=== PATIENT | female | born 1955 | race Caucasian/White ===

== ENCOUNTER 2020-10-21 00:03 | Emergency (ER) | payer MEDICAID, SELFPAY ==
--- NOTE | ~2020-10-21 | CT_ITS ---
EXAMINATION: CT ABDOMEN AND PELVIS WITHOUT CONTRAST CLINICAL INFORMATION: Rule out incarcerated hernia COMPARISON: 08/30/2018 TECHNIQUE: Multidetector volumetric imaging was performed from the superior aspect of the liver through the pubic symphysis. Sagittal and coronal reformatted images were obtained on the technologist's workstation. This CT examination was performed using dose optimization techniques as appropriate, variously including the following: *Automated exposure control *Adjustment of mA and/or kV according to patient size (this includes techniques or standardized protocols for targeted exams where dose is matched to indication/reason for exam; i.e. extremities or head) *Use of iterative reconstruction technique DLP: 936 mGy-cm FINDINGS: LUNG BASES: Bibasilar atelectasis is noted as well as some ground glass opacities in the right lower lobe. LIVER, GALLBLADDER, AND BILIARY TREE: The liver is normal in size, shape, and attenuation. Left hepatic lobe calcifications redemonstrated. No biliary ductal dilatation is present. Patient is status post cholecystectomy. PANCREAS: Unremarkable. SPLEEN: Unremarkable. ADRENAL GLANDS: Tiny right adrenal calcification redemonstrated. Left adrenal gland appears unremarkable. KIDNEYS AND URETERS: There is a proximal left ureteral calculus measuring up to 17 mm in length with moderate hydronephrosis. There are a few scattered right renal calculi measuring up to 5 mm without hydronephrosis or ureteral calculus. BLADDER: Partially distended. Tiny focus of gas noted anteriorly. GASTROINTESTINAL TRACT: No convincing evidence of bowel obstruction or significant wall thickening. No free fluid or free air is seen. ABDOMINAL WALL: There is a ventral hernia in the periumbilical region containing a loop of nondilated small bowel. There is some nearby subcutaneous stranding along the midline to right abdomen. LYMPH NODES: Normal. VASCULAR: Scattered atherosclerotic calcifications noted. PELVIC VISCERA: Unremarkable. OSSEOUS STRUCTURES: Degenerative changes are noted in the spine. CT/CT abdomen pelvis wo con IMPRESSION: 1. Proximal left ureteral calculus measuring 17 mm with moderate hydronephrosis. 2. Periumbilical ventral hernia containing a short segment of small bowel. No convincing evidence of bowel obstruction. 3. Right renal calculi without hydronephrosis. 4. Tiny focus of gas in the urinary bladder which could be due to recent catheterization or infection. 5. Regions of pulmonary groundglass opacity in the right lower lobe which could be due to atelectasis though an infectious/inflammatory etiology is also a possibility.
[2020-10-21 00:52] VITALS: BP 161/78; PULSE 75; RESP 16; TEMP 36.6; O2SAT 95; BMI 42.5
--- NOTE | 2020-10-21 00:59 | ECG_ITS ---
Test Reason : CHEST PAIN Blood Pressure : / mmHG Vent. Rate : 066 BPM Atrial Rate : 066 BPM P-R Int : 184 ms QRS Dur : 086 ms QT Int : 378 ms P-R-T Axes : 028 -04 032 degrees QTc Int : 396 ms Normal sinus rhythm Voltage criteria for left ventricular hypertrophy Nonspecific T wave abnormality Abnormal ECG When compared with ECG of 27-MAR-2018 17:55, Nonspecific T wave abnormality now evident in Inferior leads Referred By: Mignon Ames Electronically Signed By:JOHNNY COOPER MD
--- NOTE | 2020-10-21 01:00 | ED.ABDPAIN ---
HPI - Abdominal Pain General Chief Complaint: Abdominal Pain Stated Complaint: Hernia Time Seen by Provider: 10/21/20 00:53 Source: patient Mode of arrival: wheelchair Limitations: no limitations History of Present Illness HPI narrative: Patient comes emergency room complaining of a UTI that started this morning. Patient states she has been urinating frequently, states the urine smells bad. Denies flank pain, no fever or chills. Patient also complaining of diffuse abdominal pain, states that she has been having this intermittent diffuse abdominal pain for several months, states she has been operated for hernia over 7 times. Patient denies vomiting or diarrhea Related Data Previous Rx's Medication Instructions Recorded levofloxacin 500 mg PO DAILY #9 tab 10/21/20 tamsulosin [Flomax] 0.4 mg PO DAILY #10 cap 10/21/20 Allergies Allergy/AdvReac Type Severity Reaction Status Date / Time lactose [LACTOSE] Allergy Unknown UNKNOWN Verified 10/21/20 02:36 Sulfa (Sulfonamide Allergy Unknown ITCHY Verified 10/21/20 02:36 Antibiotics) [SULFA (SULFONAMIDE ANTIBIOTICS)] lactose Allergy Unknown Gastrointestinal Uncoded 10/21/20 02:36 Upset sulfa Allergy Unknown Itching Uncoded 10/21/20 02:36 Review of Systems Review of Systems Constitutional : No Weight loss, No Fever, No Chills, No Night Sweats, No Fatigue, No Malaise ENT/Mouth : No Hearing loss, No Ear Pain, No Nasal Congestion, No Sinus Pain, No Hoarseness, No sore throat, No Rhinorrhea, No Swallowing Difficulty Eyes: No Eye Pain, No Swelling, No Redness, No Foreign Body, No Discharge, No Vision Changes Cardiovascular : No Chest Pain, No SOB, No Dyspnea on Exertion, No Orthopnea, No Edema, No Palpitations Respiratory : No Cough, No Sputum, No Wheezing, No Smoke Exposure, No Dyspnea Gastrointestinal : No Nausea, No Vomiting, No Diarrhea, No Constipation, No abdominal Pain, No Hematochezia, No Melena Genitourinary : no irregular bleeding, No Dysuria, No Urinary Frequency, No Hematuria, No Urinary Incontinence, No Urgency, No Flank Pain, No Urinary Flow Changes, No Hesitancy Musculoskeletal : No joint pain, No Myalgias, No Joint Swelling Skin : No Skin Lesions, No rash Neuro : No Weakness, No Numbness, No Paresthesias, No Loss of Consciousness, No Dizziness, No Headache Psych : No Anxiety/Panic, No Depression, No SI/HI/AH/VH, No Social Issues, Heme/Lymph: No Bruising, No Bleeding,No Lymphadenopathy Endocrine : No Polyuria, No Polydipsia, No Temperature Intolerance Physical Exam Vital Signs: Vital Signs: Last Vital Signs Temp 97.8 F 10/21/20 00:52 Pulse 77 10/21/20 02:07 Resp 18 10/21/20 02:07 BP 143/62 H 10/21/20 02:07 Pulse Ox 95 10/21/20 02:07 Body Mass Index 42.5 Course Course Course Narrative: I discussed the labs and CT scan with the patient. Patient will follow-up with Urology. At this time, Levophed count within normal limits, pulmonary etiology is not suspected, patient does not have fever, chills, cough or any symptoms that would suggest pulmonary pathology. Patient will be given levofloxacin, which will cover both, urinary and pulmonary infections. Patient also requesting phone number for follow-up with surgery since she does not have 1, also requesting information for bariatric surgery MDM - Abdominal Pain Lab Data Result diagrams: 10/21/20 01:28 10/21/20 01:28 Labs: Lab Results 10/21/20 10/21/20 10/21/20 Range/Units 01:28 01:28 01:28 WBC 6.2 (4.8-10.8) X10*3/uL RBC 4.12 L (4.20-5.50) X10*6/uL Hgb 12.7 (12.0-16.0) g/dl Hct 37.9 (37-47) % MCV 92.0 (80-98) fL MCH 30.8 (27.0-33.0) pg MCHC 33.5 (31.0-35.0) g/dl RDW 12.6 (11.0-16.0) % Plt Count 246 (160-400) X10*3/uL MPV 10.2 (9.4-12.3) fL Immature Gran % (Auto) 0.6 H (0.0-0.4) % Neut % (Auto) 43.6 L (45-73) % Lymph % (Auto) 31.8 (20-40) % [place] % (Auto) 7.8 (2-11) % Eos % (Auto) 15.4 H (0-4) % Baso % (Auto) 0.8 (0-2) % Lymph # (Auto) 2.0 (1.2-4.9) X10*3/uL [place] # (Auto) 0.5 (0.1-1.2) X10*3/uL Eos # (Auto) 1.0 H (0.0-0.4) X10*3/uL Baso # (Auto) 0.1 (0.0-0.2) X10*3/uL Abs Immat Gran (auto) 0.04 H (0.00-0.03) X10*3/uL Absolute Neuts (auto) 2.7 (2.0-8.3) X10*3/uL Absolute Nucleated RBC 0.000 (0.0-0.012) X10*3/uL Nucleated RBC % (auto) 0.0 (0.0-0.2) /100WBC Sodium 142 (135-145) mmol/L Potassium 3.9 (3.3-5.1) mmol/L Chloride 103 (96-108) mmol/L Carbon Dioxide 29 (22-29) mmol/L Anion Gap 14 (12-20) BUN 16 (9-16) mg/dL Creatinine 0.86 (0.5-1.4) mg/dL Estim Creat Clear Calc 78.2 Estimated GFR > 60 Random Glucose 190 H (60-115) mg/dL Calcium 9.8 (8.4-10.2) mg/dL Total Bilirubin 0.4 (0.0-1.0) mg/dL Direct Bilirubin 0.2 (0.0-0.5) mg/dL AST 62 H (5-31) U/L ALT 92 H (0-31) U/L Alkaline Phosphatase 116 (39-117) U/L Total Protein 7.1 (6.5-8.0) g/dL Albumin 3.8 (3.5-5.0) g/dL Lipase 23 (8-78) U/L Urine Color YELLOW Urine Appearance HAZY Urine pH 6.0 (5.0-8.0) Ur Specific [place] 1.025 (1.005-1.025) Urine Protein NEG (NEG-TRACE) MG/DL Urine Glucose (UA) NEG (NEG) MG/DL Urine Ketones NEG (NEG) MG/DL Urine Blood TRACE (NEG) Urine Nitrite POS H (NEG) Ur Leukocyte Esterase 2+ H (NEG) Urine RBC 1-4 (0) /HPF Urine WBC TNTC H (0-4) /HPF Ur Squamous Epith Cells 1+ /LPF Urine Bacteria 4+ /LPF Imaging Data CT scan - abdomen: Radiologist's impression: FINDINGS: LUNG BASES: Bibasilar atelectasis is noted as well as some ground glass opacities in the right lower lobe. LIVER, GALLBLADDER, AND BILIARY TREE: The liver is normal in size, shape, and attenuation. Left hepatic lobe calcifications redemonstrated. No biliary ductal dilatation is present. Patient is status post cholecystectomy. PANCREAS: Unremarkable. SPLEEN: Unremarkable. ADRENAL GLANDS: Tiny right adrenal calcification redemonstrated. Left adrenal gland appears unremarkable. KIDNEYS AND URETERS: There is a proximal left ureteral calculus measuring up to 17 mm in length with moderate hydronephrosis. There are a few scattered right renal calculi measuring up to 5 mm without hydronephrosis or ureteral calculus. BLADDER: Partially distended. Tiny focus of gas noted anteriorly. GASTROINTESTINAL TRACT: No convincing evidence of bowel obstruction or significant wall thickening. No free fluid or free air is seen. ABDOMINAL WALL: There is a ventral hernia in the periumbilical region containing a loop of nondilated small bowel. There is some nearby subcutaneous stranding along the midline to right abdomen. LYMPH NODES: Normal. VASCULAR: Scattered atherosclerotic calcifications noted. PELVIC VISCERA: Unremarkable. OSSEOUS STRUCTURES: Degenerative changes are noted in the spine. CT/CT abdomen pelvis wo con IMPRESSION: 1. Proximal left ureteral calculus measuring 17 mm with moderate hydronephrosis. 2. Periumbilical ventral hernia containing a short segment of small bowel. No convincing evidence of bowel obstruction. 3. Right renal calculi without hydronephrosis. 4. Tiny focus of gas in the urinary bladder which could be due to recent catheterization or infection. 5. Regions of pulmonary groundglass opacity in the right lower lobe which could be due to atelectasis though an infectious/inflammatory etiology is also a possibility. ECG Data Attestation: I personally reviewed and interpreted this ECG as follows: (Sinus rhythm, heart rate 66, no ST segment depression or elevation, no T-wave inversion, QTC 396) Discharge Plan Discharge Clinical Impression: Abdominal pain, Ureterolithiasis Patient Disposition: Home, Self-Care Instructions: Abdominal Pain (ED), Ureteral Stones (ED) Additional Instructions: Please follow-up with your primary care physician tomorrow. If you have any worsening or new symptoms, please return to the emergency room or call 911 Prescriptions: New levofloxacin 500 mg tablet 500 mg PO DAILY Qty: 9 RF: 0 tamsulosin [Flomax] 0.4 mg capsule 0.4 mg PO DAILY Qty: 10 RF: 0 Referrals: Sarbjit Sanchez MD [Physician] - 2 days Luis Enrique Motley MD [Physician] - 2 days Apple Chen MD [Physician] - 2 days [facility] Past Medical History Medical History (Updated 10/21/20 @ 02:35 by Mignon Ames MD) Diabetes Hypertension Social History Social History Advance Directives: No Advance Directives Information Provided: No Patient : No
[2020-10-21 01:32] LABS: MANUAL DIFF FLAG NO
[2020-10-21 01:33] LABS: Basophils Absolute Auto 0.1 X10*3/uL (0.0-0.2); Basophils Percent Auto 0.8 % (0-2); Eosinophils Percent Auto 15.4 % (0-4); Hematocrit 37.9 % (37-47); Hemoglobin 12.7 g/dl (12.0-16.0); Imm Gran Abs Auto 0.04 X10*3/uL (0.00-0.03); Imm Gran Pct Auto 0.6 % (0.0-0.4); Lymphocytes Percent Auto 31.8 % (20-40); Mean Corpuscular HGB Conc 33.5 g/dl (31.0-35.0); Mean Corpuscular Hemoglobin 30.8 pg (27.0-33.0); Mean Platelet Volume 10.2 fL (9.4-12.3); Monocytes Absolute Auto 0.5 X10*3/uL (0.1-1.2); Monocytes Percent Auto 7.8 % (2-11); Neutrophils Absolute Auto 2.7 X10*3/uL (2.0-8.3); Neutrophils Percent Auto 43.6 % (45-73); Platelet Count 246 X10*3/uL (160-400); Red Blood Count 4.12 X10*6/uL (4.20-5.50); Red Cell Distribution Width 12.6 % (11.0-16.0); White Blood Count 6.2 X10*3/uL (4.8-10.8)
[2020-10-21 02:07] VITALS: BP 143/62; PULSE 77; RESP 18; O2SAT 95
[2020-10-21 02:09] LABS: Alanine Aminotransferase 92 U/L (0-31); Albumin Level 3.8 g/dL (3.5-5.0); Alkaline Phosphatase 116 U/L (39-117); Anion Gap 14 (12-20); Aspartate Amino Transferase 62 U/L (5-31); Bilirubin Direct 0.2 mg/dL (0.0-0.5); Bilirubin Total 0.4 mg/dL (0.0-1.0); Blood Urea Nitrogen 16 mg/dL (9-16); Calcium 9.8 mg/dL (8.4-10.2); Carbon Dioxide 29 mmol/L (22-29); Chloride 103 mmol/L (96-108); Creatinine Clr Calc Pharmacy 78.2; Estimated Glomerular Filt Rate > 60; Glucose Random 190 mg/dL (60-115); Lipase 23 U/L (8-78); Potassium 3.9 mmol/L (3.3-5.1); Sodium 142 mmol/L (135-145); Total Protein 7.1 g/dL (6.5-8.0)
[2020-10-21 02:13] LABS: Glucose Urine UA NEG (NEG); Leukocyte Esterase Urine 2+ (NEG); Nitrite Urine POS (NEG); Specific Gravity - Urine 1.025 (1.005-1.025); UACC Culture Trigger YES; Urine Blood TRACE (NEG); Urine Ketones NEG (NEG); Urine Protein NEG (NEG-TRACE)
[2020-10-21 02:15] LABS: Appearance Urine HAZY; Color Urine YELLOW
[2020-10-21 02:21] LABS: Bacteria Urine 4+ /LPF; Squamous Epithelial Cell Urine 1+ /LPF; WBC Urine TNTC /HPF (0-4)
[2020-10-21] MEDS: levoFLOXacin 500 MG TABLET PO (02:58)
== END 2020-10-21 03:08 | disposition home or self-care (01) ==
PROVIDERS: Emergency Provider Emergency Medicine
DX: R10.9 Unspecified abdominal pain (principal); N13.2 Hydronephrosis with renal and ureteral calculous obstruction; Z79.899 Other long term (current) drug therapy
CPT/HCPCS: 36415; 74176; 80048; 80076; 81001; 81003; 83690; 85025; 87086; 87088; 87186; 93005; 99285

== ENCOUNTER → 2020-10-25 11:14 | Outpatient (BNVA) | payer MEDICAID, SELFPAY | PROVIDERS: Visit Provider Urology | DX: N39.0 Urinary tract infection, site not specified (principal); N13.2 Hydronephrosis with renal and ureteral calculous obstruction | CPT/HCPCS: 51798; 99202 ==

== ENCOUNTER 2020-10-31 12:38 | Day surgery (SDC) | payer MEDICAID, SELFPAY ==
--- NOTE | ~2020-10-31 | FL_ITS ---
EXAMINATION: XR FLUOROSCOPY WITH IMAGES CLINICAL INFORMATION: Left kidney stone. COMPARISON: None. TECHNIQUE: Fluoroscopy performed by Dr. Daniel Schaffer. Fluoroscopy time: 0.8 minutes DAP: 7.27 mGycm2 Images: 2 FINDINGS: Image 1 reveals contrast opacifying the mid ureter with no intraluminal filling defect. There could be an abrupt narrowing between the proximal and mid ureter from a known ureteral calculi. The second image reveals a basket in the left left bladder region with a catheter extending into the distal ureter. FL/FL guidance in OR IMPRESSION: Fluoroscopy was provided to Dr. Daniel Schaffer.
[2020-10-31 12:49] VITALS: BP 150/85; PULSE 85; RESP 16; TEMP 36.3; O2SAT 95
[2020-10-31 12:55] VITALS: BMI 42.1
[2020-10-31] MEDS: Lactated Ringers 1,000 ML 100 ML IVCONT (13:00)
[2020-10-31 13:20] LABS: Glucose, Whole Blood 162 mg/dL (60-115)
--- NOTE | 2020-10-31 14:03 | HO.ANESPROP2 ---
HPI - Anesthesia Eval Consult details Narrative: 65 yo female patient for cysto, ureteroscopy, retro, laser, stent Left ureter PMFSH Active Problems Active Problems: All Active Problems (Updated 10/25/20 @ 12:21 by Sarbjit Sanchez MD) Nephrolithiasis (Acute) Recurrent UTI (Acute) Past Medical History Medical History (Updated 10/31/20 @ 15:03 by Sommer Schwartz) Diabetes Hypertension Increased BMI Family History Family history of problems with anesthesia: No Surgical History Surgical History (Updated 10/31/20 @ 15:11 by Sommer Schwartz) H/O colonoscopy H/O hernia repair H/O ovarian cystectomy History of Problems with Anesthesia: Yes (Woke up 'aggressively' after 1 surgery) Social History Social History Alcohol intake: never Patient Tobacco Use Status: Never used Tobacco Second Hand Smoke Exposure: No Are you DNR?: Yes Advance Directives: No Advance Directives Information Provided: Yes Advance Directives on File: No Meds Allergies Allergy/AdvReac Type Severity Reaction Status Date / Time lactose [LACTOSE] Allergy Unknown Gastrointestinal Verified 10/31/20 12:25 Upset Sulfa (Sulfonamide Allergy Unknown ITCHY Verified 10/25/20 11:43 Antibiotics) [SULFA (SULFONAMIDE ANTIBIOTICS)] Exam Exam Date and Time: October 31, 2020 1403 Height,Weight and Vital Signs: Height 5 ft 3 in Weight 107.955 kg Last Vital Signs Temp 97.3 F 10/31/20 12:49 Pulse 85 10/31/20 12:49 Resp 16 10/31/20 12:49 BP 150/85 H 10/31/20 12:49 Pulse Ox 95 10/31/20 12:49 Pertinent Lab Results Pertinent Lab Results: Laboratory Tests 10/31/20 13:16 POC Glucose 162 H Airway Mallampati Class: III TM Dist: >3cm Neck ROM: Full Loose/Missing/Broken Teeth: Yes (Some missing) Heart: RRR Lungs: CTAB Assessment and Plan Assessment Anesthesia Assessment: Anesthesia Plan Discussed and Chart Reviewed Final Anesthetic Review Family History of Problems with Anesthesia: No History of Problems with Anesthesia: Yes (Woke up 'aggressively' after 1 surgery) NPO: Yes ASA Class: III Final Preanesthetic Review: No Changes in Pt Med Stat, Meds/Allgs Chart Reviewed, Consent Obtained/Reviewed and Anes Risks/Benef Reviewed Patient Risk: Intermediate Procedure Risk: Low Assessment/Block/Sedation in SS: Assess/Block/Sedation-SS Anesthetic Plan Anesthetic Plan: GA Disposition: Standard PACU
--- NOTE | 2020-10-31 14:34 | PC.NURSE ---
patient moved to pacu. report given to amos soriano.
[2020-10-31] MEDS: levoFLOXacin 500 MG TABLET PO (14:51)
--- NOTE | 2020-10-31 15:50 | P.CONAN_ITS ---
[facility] Active Problems Active Problems: All Active Problems (Updated 10/31/20 @ 15:03 by Sommer sierra) H/O colonoscopy (Acute) H/O hernia repair (Acute) H/O ovarian cystectomy (Acute) Increased BMI (Acute) Nephrolithiasis (Acute) Recurrent UTI (Acute) Past Medical History Medical History (Updated 10/31/20 @ 15:03 by Sommer Schwartz) Diabetes Hypertension Increased BMI Family History Family history of problems with anesthesia: No Surgical History Surgical History (Updated 10/31/20 @ 15:11 by Sommer Schwartz) H/O colonoscopy H/O hernia repair H/O ovarian cystectomy History of Problems with Anesthesia: Yes (Woke up 'aggressively' after 1 surgery) Social History Social History Alcohol intake: never Patient Tobacco Use Status: Never used Tobacco Second Hand Smoke Exposure: No Are you DNR?: Yes Advance Directives: No Advance Directives Information Provided: Yes Advance Directives on File: No Meds Allergies Allergy/AdvReac Type Severity Reaction Status Date / Time lactose [LACTOSE] Allergy Unknown Gastrointestinal Verified 10/31/20 12:25 Upset Sulfa (Sulfonamide Allergy Unknown ITCHY Verified 10/25/20 11:43 Antibiotics) [SULFA (SULFONAMIDE ANTIBIOTICS)] Active Medications: Current Medications Generic Name Dose Route Start Last Admin Trade Name Freq PRN Reason Stop Dose Admin Acetaminophen 650 mg 10/31/20 14:07 Acetaminophen 325 Mg Tablet PO ONCE PRN Pain, Mild (Pain Scale 1-3) Fentanyl 25 mcg 10/31/20 14:07 Fentanyl Citrate/Pf 100 Mcg/2 Ml Vial IVPUSH Q5M PRN Pain, Moderate (Pain Scale 4-6 Lactated Ringer's 1,000 mls @ 100 mls/hr 10/31/20 14:15 10/31/20 13:00 Lr IVCONT 100 mls/hr .Q10H KEVIN Administration Ketorolac Tromethamine 15 mg 10/31/20 14:07 Ketorolac Tromethamine 15 Mg/Ml Vial IVPUSH ONCE PRN Pain, Moderate (Pain Scale 4-6 Ondansetron HCl 4 mg 10/31/20 14:07 Ondansetron Hcl 4 Mg/2 Ml Vial IVPUSH ONCE PRN Nausea and Vomiting Oxycodone HCl 5 mg 10/31/20 14:07 Oxycodone Hcl Immed Release 5 Mg Tablet PO ONCE PRN Pain, Moderate (Pain Scale 4-6 Oxycodone HCl 10 mg 10/31/20 14:07 Oxycodone Hcl Immed Release 5 Mg Tablet PO ONCE PRN Pain, Severe (Pain Scale 7-10) Exam Exam Date and Time: October 31, 2020 1550 Height,Weight and Vital Signs: Height 5 ft 3 in Weight 107.955 kg Last Vital Signs Temp 97.3 F 10/31/20 12:49 Pulse 85 10/31/20 12:49 Resp 16 10/31/20 12:49 BP 150/85 H 10/31/20 12:49 Pulse Ox 95 10/31/20 12:49 Pertinent Lab Results Pertinent Lab Results: Laboratory Tests 10/31/20 13:16 POC Glucose 162 H Airway TM Dist: >3cm Neck ROM: Full Assessment and Plan Final Anesthetic Review Family History of Problems with Anesthesia: No History of Problems with Anesthesia: Yes (Woke up 'aggressively' after 1 surgery)
--- NOTE | 2020-10-31 15:55 | P.HPSUR_ITS ---
Pre-Procedural Eval Section A Date of Service: 10/31/20 Section B Chief Complaint: calculus of kidney Relevant Family History (Specify if Yes): No Relevant Social History: None Present Medications: see Short Stay Collaborative assessment Medical History: No relevant PMH History of Previous Operations: No relevant previous surgery Allergies: Allergies Allergy/AdvReac Type Severity Reaction Status Date / Time lactose [LACTOSE] Allergy Unknown Gastrointestinal Verified 10/31/20 12:25 Upset Sulfa (Sulfonamide Allergy Unknown ITCHY Verified 10/25/20 11:43 Antibiotics) [SULFA (SULFONAMIDE ANTIBIOTICS)] Review of Systems Sugical H&P ROS: Negative: Constitution, Cardiovascular, Respiratory, Neurological, Psychiatric, Hem-Onc, Allergic/Immunologic, Gastrointestinal, Genitourinary, Musculoskeletal, Integumentary, Endocrine and Eyes/Ea rs/Nose/Throat Exam Surgical H&P Exam: Normal: HEENT, Normal: Heart, Normal: Lungs, Normal: Extremities, Normal: Abdomen, Normal: Skin and Normal: Neurological Plan Diagnosis/Plan: Unchanged (Cystoscopy, left retrograde, left ureteroscopy laser lithotripsy stent placement) I have reviewed the history and physical and performed a pertinent physical examination on my patient. No changes have occurred unless specified.
[2020-10-31 16:50] VITALS: BP 125/82; PULSE 93; RESP 13; TEMP 36.8; O2SAT 93
[2020-10-31 16:55] VITALS: BP 131/70; PULSE 108; RESP 15; O2SAT 92
[2020-10-31 17:00] VITALS: BP 130/70; PULSE 88; RESP 16; O2SAT 93
[2020-10-31 17:05] VITALS: BP 138/60; PULSE 78; RESP 16; TEMP 36.4; O2SAT 95
--- NOTE | 2020-10-31 17:14 | W.PM.OPN ---
Operative Note Operative Note Date of Service: 10/31/20 Narrative: PreOperative Diagnosis: Left proximal ureteric stone Post Operative Diagnosis: Large left proximal ureteric stone Procedure: - cystoscopy, retrograde - dilatation of ureteric orifice under fluoroscopy - ureteroscopy, laser lithotripsy - stent placement Surgeon: Dr Sarbjit Sanchez Anesthesia: General Indications for procedure: Large left proximal ureteric stone. Seen in ER. At that point with infection which resolved. Here for definitive procedure. Procedure: After informed consent was verified patient was brought to the operating placed in supine position. Anesthesia was administered per protocol. Patient was placed in modified dorsal lithotomy position and prepped and draped in a sterile fashion. Safety pause time-out and side of surgery confirmed. Antibiotics confirmed. Twenty-two [place]inamese cystoscope inserted per urethra. No abnormalities noted of bladder. Ureteric orifices in normal position. Left ureteric orifice cannulated and retrograde examination performed. Large filling defect in proximal portion of left ureter. Rigid ureteroscopy performed. Stone encountered. Using a laser the stone was broken into small pieces. The half the stone backed into the renal pelvis. The rigid scope was removed. A Glidewire placed. A flexible ureteral scope placed into the renal pelvis. The stone was encountered. It was broken further using the holmium laser. Fragments were too small to basket. Wire was placed back through the flexible ureteral scope. Six [place]amese by 22 cm double-J stent placed without difficulty. The bladder was emptied. Patient tolerated procedure well was extubated in operating room transferred in stable condition to recovery area. Pathology: stones Drains: stent
[2020-10-31 17:20] VITALS: BP 125/63; PULSE 89; RESP 16; TEMP 36.2; O2SAT 96
== END 2020-10-31 17:28 | disposition home or self-care (01) ==
PROVIDERS: Visit Provider Urology
PROC: (CPT 52356; principal; 2020-10-31 13:50)
DX: N20.1 Calculus of ureter (principal); I10 Essential (primary) hypertension; E11.9 Type 2 diabetes mellitus without complications; Z79.84 Long term (current) use of oral hypoglycemic drugs; Z79.899 Other long term (current) drug therapy; Z88.2 Allergy status to sulfonamides
CPT/HCPCS: 52356; 82947; C1769; C2617; J1100; J1885; J2250; J2370; J2405; J2765; J3010; Q9967

== ENCOUNTER 2020-11-01 01:50 | Inpatient (IN) | payer MEDICAID, SELFPAY ==
[2020-11-01] VITALS (10 sets, daily range): BP systolic 94–156; BP diastolic 45–71; PULSE 81–110; RESP 15–30; TEMP 36.5–36.8; O2SAT 88–98; BMI 37.5
--- NOTE | ~2020-11-01 | US_ITS ---
EXAMINATION: US PELVIS LIMITED (BLADDER) CLINICAL INFORMATION: Recent cystoscopy; lower abdominal pain. COMPARISON: Ultrasound abdomen limited dated 11/01/2020. CT abdomen and pelvis without contrast dated 10/21/2020. Renals only ultrasound dated 09/30/2018. KUB dated 09/23/2018. TECHNIQUE: Real-time imaging of the bladder. FINDINGS: BLADDER: Partially distended. Bilateral ureteral jets are demonstrated. Prevoid bladder volume is 23.6 mL. Postvoid bladder volume is 4.9 mL. US/US bladder IMPRESSION: Bladder not optimally distended. Otherwise unremarkable exam..
--- NOTE | ~2020-11-01 | US_ITS ---
EXAMINATION: US ABDOMEN LIMITED CLINICAL INFORMATION: Transaminitis. COMPARISON: CT abdomen and pelvis without contrast dated 10/21/2020. Renal only ultrasound dated 09/30/2018. KUB dated 09/23/2018. TECHNIQUE: Real-time imaging of the right upper quadrant abdominal viscera. Technically difficult study secondary to body habitus. FINDINGS: PANCREAS: Head and body are normal appearing. The tail of the pancreas is not well visualized due to bowel gas. LIVER: Normal. The liver is normal in size. The liver contour is normal. Parenchymal echogenicity is normal. No focal hepatic lesion. There is no intrahepatic biliary duct dilatation seen. GALLBLADDER: Surgically absent. COMMON BILE DUCT: Normal in caliber measuring 0.4 cm in diameter. RIGHT KIDNEY: Not well visualized. FREE FLUID: None. US/US abdomen limited IMPRESSION: The right kidney and tail of the pancreas are not well visualized.. Otherwise unremarkable exam.
--- NOTE | ~2020-11-01 | CT_ITS ---
EXAMINATION: CT HEAD WITHOUT CONTRAST CLINICAL INFORMATION: Altered mental status COMPARISON: None TECHNIQUE: Contiguous axial imaging was performed from the skull base to vertex without intravenous administration of contrast. This CT examination was performed using dose optimization techniques as appropriate, variously including the following: *Automated exposure control *Adjustment of mA and/or kV according to patient size (this includes techniques or standardized protocols for targeted exams where dose is matched to indication/reason for exam; i.e. extremities or head) *Use of iterative reconstruction technique DLP: 755 mGy-cm FINDINGS: There is no evidence of acute intracranial hemorrhage or territorial infarction. No abnormal mass effect or midline shift is seen. [place] to white matter differentiation is well preserved. No extra-axial fluid collections are identified. The ventricles are normal in size. Patchy subcortical and periventricular white matter low attenuation changes statistically related to chronic white matter small vessel ischemic disease. Cavernous carotid calcifications. The osseous structures and soft tissues are normal. The mastoid air cells and visualized portions of the paranasal sinuses are well aerated. CT/CT head/brain wo con IMPRESSION: No acute intracranial pathology.
--- NOTE | ~2020-11-01 | CT_ITS ---
EXAMINATION: CT ANGIOGRAM OF THE CHEST WITH AND WITHOUT CONTRAST (CT PULMONARY ANGIOGRAM FOR PE) CLINICAL INFORMATION: Reason for Exam Hypotensive, tachycardic, hypoxic COMPARISON: None TECHNIQUE: Prior to contrast administration, noncontrast localization images were obtained. Subsequently, multidetector volumetric imaging was performed from the thoracic inlet to below the diaphragms following the administration of 85 mL Omnipaque 350 intravenous contrast. No contrast reaction reported Sagittal, coronal, and MIP oblique sagittal reformatted images were obtained on the CT workstation, uploaded to PACS, and reviewed. This CT examination was performed using dose optimization techniques as appropriate, variously including the following: *Automated exposure control *Adjustment of mA and/or kV according to patient size (this includes techniques or standardized protocols for targeted exams where dose is matched to indication/reason for exam; i.e. extremities or head) *Use of iterative reconstruction technique Total exam dose-length product 560 mGy-cm FINDINGS: QUALITY OF STUDY/CONTRAST BOLUS: Satisfactory. PULMONARY ARTERIES: No central or segmental pulmonary emboli. THORACIC AORTA: No aneurysm or dissection. LUNG: Mild dependent subsegmental atelectasis. No evidence of infective consolidation. No pneumonitis. No significant bronchial thickening or bronchiectasis. PLEURA: No pleural effusion or pneumothorax. MEDIASTINUM: Mild cardiomegaly. No pericardial effusion. No aortic aneurysm or dissection. Main pulmonary artery dilated to 35 mm suggestive of pulmonary hypertension. No evidence of septal bowing or right heart strain. No reflux of contrast into the hepatic veins to suggest elevated right heart pressures. CHEST WALL/AXILLA: No axillary or internal mammary lymphadenopathy. OSSEOUS STRUCTURES: No acute or suspicious osseous abnormality. UPPER ABDOMEN: Unremarkable. CT/CT angio chest PE protocol IMPRESSION: * No pulmonary embolism. * Mild cardiomegaly with dilatation of the main pulmonary artery suggestive of pulmonary hypertension. * No acute pulmonary findings. * Bibasilar dependent subsegmental atelectasis. VTE: negative
[2020-11-01 01:58] LABS: Glucose, Whole Blood 280 mg/dL (60-115)
--- NOTE | 2020-11-01 01:59 | ECG_ITS ---
Test Reason : AMS Blood Pressure : / mmHG Vent. Rate : 109 BPM Atrial Rate : 109 BPM P-R Int : 166 ms QRS Dur : 082 ms QT Int : 334 ms P-R-T Axes : 021 -11 156 degrees QTc Int : 449 ms Sinus tachycardia Voltage criteria for left ventricular hypertrophy T wave abnormality, consider lateral ischemia Abnormal ECG When compared with ECG of 21-OCT-2020 01:32, Vent. rate has increased BY 43 BPM Inverted T waves have replaced nonspecific T wave abnormality in Lateral leads Referred By: Devi Richards Electronically Signed By:Fly Montanez
--- NOTE | 2020-11-01 02:04 | ED.AMS ---
HPI - Altered Mental Status General Chief Complaint: Altered Mental Status Stated Complaint: ? AMS Time Seen by Provider: 11/01/20 01:59 Source: patient, family (Daughter) and linux system administrator Mode of arrival: EMS History of Present Illness HPI narrative: This is a 65-year-old female who presents via EMS after her daughter woke up at 12:45 p.m. and helped her mother to the bathroom but then her mother became tremulous and white and ?passed out?. The daughter immediately called EMS. The daughter states that her mother returned from the hospital at approximately 6-7 p.m. last night after having undergone a cystoscopy for stone removal and states that her mother did not really have much of an appetite and that she was tremulous and when she checked her blood pressure she states that the systolic was approximately 62. She states that they were told that this could happen. She then says that she checked her mom's sugar and said that it was in the low 100s and gave her a corn cake. On arrival, patient although drowsy/lethargic states that she is dizzy. Otherwise history difficult to obtain from her on initial arrival. Related Data Previous Rx's Medication Instructions Recorded levofloxacin 500 mg tablet 500 mg PO DAILY #9 tab 10/21/20 tamsulosin 0.4 mg capsule (Flomax) 0.4 mg PO DAILY #10 cap 10/21/20 bethanechol chloride 50 mg tablet 50 mg PO BID 30 Days #60 tab 10/25/20 estradiol See Rx Instructions .ROUTE 3XW 30 10/25/20 Days #42.5 g phenazopyridine 100 mg tablet 100 mg PO TID PRN 4 Days #12 tab 10/31/20 (Pyridium) tamsulosin 0.4 mg capsule 0.4 mg PO BEDTIME 14 Days #14 cap 10/31/20 tramadol 50 mg tablet 50 mg PO Q6H PRN #14 tab 10/31/20 Allergies Allergy/AdvReac Type Severity Reaction Status Date / Time lactose [LACTOSE] Allergy Unknown Gastrointestinal Verified 10/31/20 12:25 Upset Sulfa (Sulfonamide Allergy Unknown ITCHY Verified 10/25/20 11:43 Antibiotics) [SULFA (SULFONAMIDE ANTIBIOTICS)] Review of Systems Review of Systems: Pertinent positives and negatives as stated in HPI 10 point review of systems is otherwise negative. PMFSH Past Medical History Source: nursing notes reviewed Medical History Diabetes Hypertension Increased BMI Surgical History H/O colonoscopy H/O hernia repair H/O ovarian cystectomy Social History Social History Alcohol intake: never Patient Tobacco Use Status: Never used Tobacco Second Hand Smoke Exposure: No Use of substances other than those prescribed or required for medical reasons: No Advance Directives: No Patient : No Physical Exam Vital Signs: Vital Signs: Last Vital Signs Temp 98.2 F 11/01/20 04:00 Pulse 98 11/01/20 04:00 Resp 15 11/01/20 04:00 BP 118/58 L 11/01/20 04:00 Pulse Ox 93 11/01/20 04:00 Body Mass Index 37.5 VITAL SIGNS: Reviewed. GENERAL: Obese, Well developed, well nourished HEAD: Normocephalic/atraumatic, EYES: PERRLA, EOMI OROPHARYNX: no oral lesions noted, posterior pharynx clear LUNGS: Normal breath sounds. SpO2<88> patient placed on supplemental oxygen via nasal cannula at 2 L with good response to 94% CARDIOVASCULAR: Tachycardia and rhythm without noted murmurs, no JVD or lower extremity edema. ABDOMEN: Obese, Soft, non-tender, non-distended with bowel sounds. MUSCULOSKELETAL: No tenderness, deformities, or effusions noted on gross inspection. EXTREMITIES: No cyanosis, clubbing or edema. SKIN: Inspection of the skin reveals no rashes, significant pallor NEUROLOGIC: Lethargic and oriented x 2. Strength and sensation to light touch were grossly intact x 4, no pronator drift, no facial asymmetry Course Course Course Narrative: 65-year-old female with history and clinical presentation consistent with altered mental status and initial expedient evaluation for neuro exam not impressive for deficits and initial EKG not indicative of any acute cardiac event and given patient's recent procedure suspected sepsis secondary to urine. However, patient was sent over for CT of the head while receiving IV fluid resuscitation for noted hypotension and tachycardia. Collateral information obtained from the daughter and on re-evaluation of the patient she has gradually begun to improve with fluids and return of color to her face, increased alertness, as well as improvement in blood pressure and heart rate. On review of all investigations she has a new leukocytosis, noted elevated D-dimer, as well as lactic acidosis and low magnesium level. Patient will undergo CT angio of chest to ensure no PE, although this is most consistent with sepsis. Re-evaluation and review of additional investigations demonstrates patient continuing to clinically improve and CTAs negative for PE. Case discussed with inpatient hospitalist who is agreeable for admission. MDM - Altered Mental Status Lab Data Result diagrams: 11/01/20 02:11 11/01/20 02:11 Labs: Lab Results 11/01/20 11/01/20 11/01/20 Range/Units 01:53 02:11 02:11 WBC 14.0 H (4.8-10.8) X10*3/uL RBC 4.36 (4.20-5.50) X10*6/uL Hgb 13.4 (12.0-16.0) g/dl Hct 40.9 (37-47) % MCV 93.8 (80-98) fL MCH 30.7 (27.0-33.0) pg MCHC 32.8 (31.0-35.0) g/dl RDW 13.2 (11.0-16.0) % Plt Count 209 (160-400) X10*3/uL MPV 10.6 (9.4-12.3) fL Immature Gran % (Auto) 1.6 H (0.0-0.4) % Neut % (Auto) 94.4 H (45-73) % Lymph % (Auto) 2.3 L (20-40) % Dukes % (Auto) 1.4 L (2-11) % Eos % (Auto) 0.1 (0-4) % Baso % (Auto) 0.2 (0-2) % Lymph # (Auto) 0.3 L (1.2-4.9) X10*3/uL [place]ukes # (Auto) 0.2 (0.1-1.2) X10*3/uL Eos # (Auto) 0.0 (0.0-0.4) X10*3/uL Baso # (Auto) 0.0 (0.0-0.2) X10*3/uL Abs Immat Gran (auto) 0.22 H (0.00-0.03) X10*3/uL Absolute Neuts (auto) 13.2 H (2.0-8.3) X10*3/uL Absolute Nucleated RBC 0.000 (0.0-0.012) X10*3/uL Nucleated RBC % (auto) 0.0 (0.0-0.2) /100WBC Smear Tech's Comments VERIFIED PT (9.9-13.0) SEC INR (0.9-1.1) D-Dimer NG/ML Sodium 139 (135-145) mmol/L Potassium 3.9 (3.3-5.1) mmol/L Chloride 104 (96-108) mmol/L Carbon Dioxide 22 (22-29) mmol/L Anion Gap 17 (12-20) BUN 20 H (9-16) mg/dL Creatinine 1.33 (0.5-1.4) mg/dL Estim Creat Clear Calc 54.2 Estimated GFR 40 POC Glucose 280 H (60-115) mg/dL Random Glucose 279 H D (60-115) mg/dL Lactic Acid (0.5-2.0) mmol/L Calcium 9.5 (8.4-10.2) mg/dL Magnesium 1.3 L* (1.6-2.6) mg/dL Total Bilirubin 1.8 H (0.0-1.0) mg/dL AST 165 H (5-31) U/L ALT 169 H (0-31) U/L Alkaline Phosphatase 107 (39-117) U/L Troponin I High Sens (<3.5-17.0) ng/L Total Protein 6.7 (6.5-8.0) g/dL Albumin 3.7 (3.5-5.0) g/dL Lipase 15 (8-78) U/L Urine Color Urine Appearance Urine pH (5.0-8.0) Ur Specific [place] (1.005-1.025) Urine Protein (NEG-TRACE) MG/DL Urine Glucose (UA) (NEG) MG/DL Urine Ketones (NEG) MG/DL Urine Blood (NEG) Urine Nitrite (NEG) Ur Leukocyte Esterase (NEG) Urine RBC (0) /HPF Urine WBC (0-4) /HPF Urine WBC Clumps Ur Squamous Epith Cells /LPF Urine Bacteria /LPF Acetone, Qual Negative (Negative) COVID-19 (REILLY) (Negative) COVID-19 Clin Com 11/01/20 11/01/20 11/01/20 Range/Units 02:11 02:11 02:32 WBC (4.8-10.8) X10*3/uL RBC (4.20-5.50) X10*6/uL Hgb (12.0-16.0) g/dl Hct (37-47) % MCV (80-98) fL MCH (27.0-33.0) pg MCHC (31.0-35.0) g/dl RDW (11.0-16.0) % Plt Count (160-400) X10*3/uL MPV (9.4-12.3) fL Immature Gran % (Auto) (0.0-0.4) % Neut % (Auto) (45-73) % Lymph % (Auto) (20-40) % Dukes % (Auto) (2-11) % Eos % (Auto) (0-4) % Baso % (Auto) (0-2) % Lymph # (Auto) (1.2-4.9) X10*3/uL [place]ukes # (Auto) (0.1-1.2) X10*3/uL Eos # (Auto) (0.0-0.4) X10*3/uL Baso # (Auto) (0.0-0.2) X10*3/uL Abs Immat Gran (auto) (0.00-0.03) X10*3/uL Absolute Neuts (auto) (2.0-8.3) X10*3/uL Absolute Nucleated RBC (0.0-0.012) X10*3/uL Nucleated RBC % (auto) (0.0-0.2) /100WBC Smear Tech's Comments PT 14.7 H (9.9-13.0) SEC INR 1.3 H (0.9-1.1) D-Dimer NG/ML Sodium (135-145) mmol/L Potassium (3.3-5.1) mmol/L Chloride (96-108) mmol/L Carbon Dioxide (22-29) mmol/L Anion Gap (12-20) BUN (9-16) mg/dL Creatinine (0.5-1.4) mg/dL Estim Creat Clear Calc Estimated GFR POC Glucose (60-115) mg/dL Random Glucose (60-115) mg/dL Lactic Acid 5.6 H* (0.5-2.0) mmol/L Calcium (8.4-10.2) mg/dL Magnesium (1.6-2.6) mg/dL Total Bilirubin (0.0-1.0) mg/dL AST (5-31) U/L ALT (0-31) U/L Alkaline Phosphatase (39-117) U/L Troponin I High Sens 3.9 (<3.5-17.0) ng/L Total Protein (6.5-8.0) g/dL Albumin (3.5-5.0) g/dL Lipase (8-78) U/L Urine Color Urine Appearance Urine pH (5.0-8.0) Ur Specific [place] (1.005-1.025) Urine Protein (NEG-TRACE) MG/DL Urine Glucose (UA) (NEG) MG/DL Urine Ketones (NEG) MG/DL Urine Blood (NEG) Urine Nitrite (NEG) Ur Leukocyte Esterase (NEG) Urine RBC (0) /HPF Urine WBC (0-4) /HPF Urine WBC Clumps Ur Squamous Epith Cells /LPF Urine Bacteria /LPF Acetone, Qual (Negative) COVID-19 (REILLY) (Negative) COVID-19 Clin Com 11/01/20 11/01/20 11/01/20 Range/Units 02:32 02:32 05:04 WBC (4.8-10.8) X10*3/uL RBC (4.20-5.50) X10*6/uL Hgb (12.0-16.0) g/dl Hct (37-47) % MCV (80-98) fL MCH (27.0-33.0) pg MCHC (31.0-35.0) g/dl RDW (11.0-16.0) % Plt Count (160-400) X10*3/uL MPV (9.4-12.3) fL Immature Gran % (Auto) (0.0-0.4) % Neut % (Auto) (45-73) % Lymph % (Auto) (20-40) % [place]ukes % (Auto) (2-11) % Eos % (Auto) (0-4) % Baso % (Auto) (0-2) % Lymph # (Auto) (1.2-4.9) X10*3/uL [place]ukes # (Auto) (0.1-1.2) X10*3/uL Eos # (Auto) (0.0-0.4) X10*3/uL Baso # (Auto) (0.0-0.2) X10*3/uL Abs Immat Gran (auto) (0.00-0.03) X10*3/uL Absolute Neuts (auto) (2.0-8.3) X10*3/uL Absolute Nucleated RBC (0.0-0.012) X10*3/uL Nucleated RBC % (auto) (0.0-0.2) /100WBC Smear Tech's Comments PT (9.9-13.0) SEC INR (0.9-1.1) D-Dimer [id number] NG/ML Sodium (135-145) mmol/L Potassium (3.3-5.1) mmol/L Chloride (96-108) mmol/L Carbon Dioxide (22-29) mmol/L Anion Gap (12-20) BUN (9-16) mg/dL Creatinine (0.5-1.4) mg/dL Estim Creat Clear Calc Estimated GFR POC Glucose (60-115) mg/dL Random Glucose (60-115) mg/dL Lactic Acid (0.5-2.0) mmol/L Calcium (8.4-10.2) mg/dL Magnesium (1.6-2.6) mg/dL Total Bilirubin (0.0-1.0) mg/dL AST (5-31) U/L ALT (0-31) U/L Alkaline Phosphatase (39-117) U/L Troponin I High Sens (<3.5-17.0) ng/L Total Protein (6.5-8.0) g/dL Albumin (3.5-5.0) g/dL Lipase (8-78) U/L Urine Color KRISTA Urine Appearance CLOUDY Urine pH 6.5 (5.0-8.0) Ur Specific [place] <= 1.005 (1.005-1.025) Urine Protein 1+ H (NEG-TRACE) MG/DL Urine Glucose (UA) NEG (NEG) MG/DL Urine Ketones NEG (NEG) MG/DL Urine Blood 3+ H (NEG) Urine Nitrite NEG (NEG) Ur Leukocyte Esterase TRACE H (NEG) Urine RBC TNTC H (0) /HPF Urine WBC 10-14 H (0-4) /HPF Urine WBC Clumps NOTED Ur Squamous Epith Cells 1+ /LPF Urine Bacteria 1+ /LPF Acetone, Qual (Negative) COVID-19 (REILLY) Negative (Negative) COVID-19 Clin Com See Note ECG Data ECG #1: Attestation: I personally reviewed and interpreted this ECG as follows: Prior ECG tracings: available for review (10/21/2020 no acute changes on comparison) Interpretation: Sinus tachycardia, HR-109, no STEMI, IL/QRS/QTC are within normal limits. Discharge Plan Discharge Clinical Impression: Syncope, Severe sepsis, Hypomagnesemia, UTI (urinary tract infection) Patient Disposition: Admitted As Inpatient
[2020-11-01] MEDS: 0.9 % Sodium Chloride 1,000 ML 999 ML IV (02:17)
[2020-11-01 02:18] LABS: Basophils Percent Auto 0.2 % (0-2); Eosinophils Percent Auto 0.1 % (0-4); Hematocrit 40.9 % (37-47); Hemoglobin 13.4 g/dl (12.0-16.0); Imm Gran Abs Auto 0.22 X10*3/uL (0.00-0.03); Imm Gran Pct Auto 1.6 % (0.0-0.4); Lymphocytes Absolute Auto 0.3 X10*3/uL (1.2-4.9); Lymphocytes Percent Auto 2.3 % (20-40); MANUAL DIFF FLAG SCAN; Mean Corpuscular HGB Conc 32.8 g/dl (31.0-35.0); Mean Corpuscular Hemoglobin 30.7 pg (27.0-33.0); Mean Corpuscular Volume 93.8 fL (80-98); Mean Platelet Volume 10.6 fL (9.4-12.3); Monocytes Absolute Auto 0.2 X10*3/uL (0.1-1.2); Monocytes Percent Auto 1.4 % (2-11); Neutrophils Absolute Auto 13.2 X10*3/uL (2.0-8.3); Neutrophils Percent Auto 94.4 % (45-73); Platelet Count 209 X10*3/uL (160-400); Red Blood Count 4.36 X10*6/uL (4.20-5.50); Red Cell Distribution Width 13.2 % (11.0-16.0); SCAN SMEAR FLAG 1
[2020-11-01 02:31] LABS: Acetone, serum QL Negative (Negative)
[2020-11-01 02:34] LABS: Lactic Acid 5.6 mmol/L (0.5-2.0)
[2020-11-01 02:39] LABS: SLIDE REVIEW VERIFIED
[2020-11-01 02:41] LABS: Troponin-I High Sensitivity 3.9 ng/L (<3.5-17.0)
[2020-11-01 02:44] LABS: INTERNATIONAL NORM RATIO 1.3 (0.9-1.1); Prothrombin Time 14.7 SEC (9.9-13.0)
[2020-11-01 02:46] LABS: Alanine Aminotransferase 169 U/L (0-31); Albumin Level 3.7 g/dL (3.5-5.0); Alkaline Phosphatase 107 U/L (39-117); Anion Gap 17 (12-20); Aspartate Amino Transferase 165 U/L (5-31); Bilirubin Total 1.8 mg/dL (0.0-1.0); Blood Urea Nitrogen 20 mg/dL (9-16); Calcium 9.5 mg/dL (8.4-10.2); Carbon Dioxide 22 mmol/L (22-29); Chloride 104 mmol/L (96-108); Creatinine Clr Calc Pharmacy 54.2; Estimated Glomerular Filt Rate 40; Glucose Random 279 mg/dL (60-115); Lipase 15 U/L (8-78); Magnesium 1.3 mg/dL (1.6-2.6); Potassium 3.9 mmol/L (3.3-5.1); Sodium 139 mmol/L (135-145); Total Protein 6.7 g/dL (6.5-8.0)
[2020-11-01 02:52] LABS: COVID-19 Test Negative (Negative); IDNOW Serial# 9DD0AD1C
[2020-11-01 03:13] LABS: D Dimer 11980 NG/ML
[2020-11-01] MEDS: cefTRIAXone sodium 1 GM in 0.9 % Sodium Chloride 50 ML IV (03:18)
[2020-11-01 04:18] LABS: Reflex Lactate? Lactic Acid Added
[2020-11-01] MEDS: iohexoL 350 MG/ML 100 ML INFUS..BTL 85 ML IV (04:32)
[2020-11-01] MEDS: Magnesium Sulfate/D5W 1 GM/100 ML PIGGYBACK IV (04:42)
[2020-11-01 05:10] LABS: Glucose Urine UA NEG (NEG); Leukocyte Esterase Urine TRACE (NEG); Nitrite Urine NEG (NEG); PH 6.5 (5.0-8.0); Specific Gravity - Urine <= 1.005 (1.005-1.025); UACC Culture Trigger YES; Urine Blood 3+ (NEG); Urine Ketones NEG (NEG); Urine Protein 1+ MG/DL (NEG-TRACE)
[2020-11-01 05:12] LABS: Appearance Urine CLOUDY; Color Urine AMBER
[2020-11-01 05:17] LABS: Bacteria Urine 1+ /LPF; RBC Urine TNTC /HPF (0); Squamous Epithelial Cell Urine 1+ /LPF; WBC Clumps Urine NOTED
--- NOTE | 2020-11-01 05:55 | P.HPHOSP_ITS ---
History of Present Illness Date of Service: 11/01/20 Chief Complaint: Syncope 65-year-old female with a past medical history of hypertension, diabetes, of hernia status post multiple abdominal surgeries,, recent diagnosis of renal calculi-Cystoscopy, left retrograde, left ureteroscopy laser lithotripsy stent placement on 10/31/[address] huerta; subsequently went home at around 6:00 p.m.; presented to the hospital with a chief complaint of syncope. Patient is Portuguese-speaking; discussed with the patient patient's daughter at bedside with a winder contort operator. Reportedly after the patient went home she felt tremulous and shaky and noted to have low blood pressure; subsequently patient turned pale became diaphoretic and lost consciousness for few minutes; denies any fall, head strike; patient denies any numbness tingling headaches or blurry visions. At the time of my interview patient reports that she has back at her baseline; reports mild dizziness. Mental status is at her baseline as per the patient's daughter. Patient denies any chest pain palpitations. Denies any fever chills cough. Patient reports lower abdominal discomfort in the perivaginal area mostly- attributes to the cystoscopy procedure. Complains of burning urination. Denies any nausea vomiting diarrhea. Review of all other systems is negative except mentioned above ER course: Per ER team patient noted to have soft blood pressures; elevated lactate; urinalysis was abnormal possible UTI-given ceftriaxone. CT chest showed no e vidence of pulmonary embolism. EKG was nonischemic. Troponin was negative. Admitted to the hospital for further management. [facility] Medical History (Updated 11/15/20 @ 09:45 by Luis Alfredo Trivedi MD) Benign essential hypertension Diabetes GERD without esophagitis Hypertension Hypothyroidism Increased BMI Lumbar degenerative disc disease Morbid obesity with BMI of 40.0-44.9, adult Neuropathy Numbness of foot Swelling of lower extremity Type 2 diabetes mellitus with diabetic neuropathy Surgical History (Updated 11/15/20 @ 09:37 by Luis Alfredo Trivedi MD) H/O colonoscopy H/O hernia repair (~2016) H/O ovarian cystectomy History of appendectomy History of cholecystectomy History of oophorectomy History of surgery History of tubal ligation Social History Household Members: Family Housing: Apartment Do you presently have visiting nurse or other home services: No Alcohol intake: never Patient Tobacco Use Status: Never used Tobacco Second Hand Smoke Exposure: No service: No Current occupational status: disabled Meds Allergies Allergy/AdvReac Type Severity Reaction Status Date / Time lactose [LACTOSE] Allergy Unknown Gastrointestinal Verified 11/15/20 09:07 Upset Sulfa (Sulfonamide Allergy Unknown ITCHY Verified 11/15/20 09:07 Antibiotics) [SULFA (SULFONAMIDE ANTIBIOTICS)] Active Medications: Current Medications Generic Name Dose Route Start Last Admin Trade Name Freq PRN Reason Stop Dose Admin Acetaminophen 650 mg 11/01/20 05:48 Acetaminophen 325 Mg Tablet PO Q6H PRN Pain, Mild (Pain Scale 1-3) Sodium Chloride 1,000 mls @ 75 mls/hr 11/01/20 06:00 Ns IVCONT .[id number] [facility] Ceftriaxone Sodium 1 gm/ 50 mls @ 100 mls/hr 11/01/20 06:00 Sodium Chloride IV Q24H [facility] Insulin Human Lispro 0 unit 11/01/20 07:30 Insulin Lispro 100 Unit/Ml 3 Ml Vial SUBCUT QIDACHS [facility] Protocol Melatonin 6 mg 11/01/20 05:48 Melatonin 3 Mg Tablet PO BEDTIME PRN Insomnia Oxycodone HCl 5 mg 11/01/20 05:48 Oxycodone Hcl Immed Release 5 Mg Tablet PO Q6H PRN Pain, Severe (Pain Scale 7-10) Senna 17.2 mg 11/01/20 05:48 Sennosides 8.6 Mg Tablet PO BEDTIME PRN Constipation Sodium Chloride 3 ml 11/01/20 08:00 0.9 % Sodium Chloride Flush 3 Ml Syringe IVFLUSH QSHIFT [facility] Home Medications Medication Instructions Recorded Confirmed Last Taken Type aspirin 81 mg tablet 81 mg PO DAILY 11/01/20 11/15/20 10/30/20 History Physical Exam Vital Signs and Narrative: Vital Signs: Last Vital Signs Temp 98.2 F 11/01/20 04:00 Pulse 98 11/01/20 04:00 Resp 15 11/01/20 04:00 BP 118/58 L 11/01/20 04:00 Pulse Ox 93 11/01/20 04:00 Body Mass Index 37.5 Gen: Appears be in no acute distress HEENT: NCAT, Moist mucosa. Pulmonary: Vesicular breath sounds, fair air entry CVS: Normal S1-S2 Abdomen: BS+, Soft, tender in the lower abdomen; no guarding no rigidity Extremities: Warm well perfused Neuro: Alert and awake. Grossly nonfocal Results Labs CBC and Chem 7: 11/03/20 06:12 11/03/20 06:12 Labs: Laboratory Results - last 24 hr 11/01/20 11/01/20 11/01/20 01:53 02:11 02:11 MCV 93.8 MCH 30.7 MCHC 32.8 RDW 13.2 Plt Count 209 MPV 10.6 Immature Gran % (Auto) 1.6 H Neut % (Auto) 94.4 H Lymph % (Auto) 2.3 L [place] % (Auto) 1.4 L Eos % (Auto) 0.1 Baso % (Auto) 0.2 Lymph # (Auto) 0.3 L [place] # (Auto) 0.2 Eos # (Auto) 0.0 Baso # (Auto) 0.0 Abs Immat Gran (auto) 0.22 H Absolute Neuts (auto) 13.2 H Absolute Nucleated RBC 0.000 Nucleated RBC % (auto) 0.0 Smear Tech's Comments VERIFIED PT INR D-Dimer Anion Gap 17 Estim Creat Clear Calc 54.2 Estimated GFR 40 POC Glucose 280 H Random Glucose 279 H D Lactic Acid Calcium 9.5 Magnesium 1.3 L* Total Bilirubin 1.8 H AST 165 H ALT 169 H Alkaline Phosphatase 107 Troponin I High Sens Total Protein 6.7 Albumin 3.7 Lipase 15 Urine Color Urine Appearance Urine pH Ur Specific [place] Urine Protein Urine Glucose (UA) Urine Ketones Urine Blood Urine Nitrite Ur Leukocyte Esterase Urine RBC Urine WBC Urine WBC Clumps Ur Squamous Epith Cells Urine Bacteria Acetone, Qual Negative COVID-19 (REILLY) COVID-19 Clin Com 11/01/20 11/01/20 11/01/20 02:11 02:11 02:32 MCV MCH MCHC RDW Plt Count MPV Immature Gran % (Auto) Neut % (Auto) Lymph % (Auto) [place] % (Auto) Eos % (Auto) Baso % (Auto) Lymph # (Auto) [place] # (Auto) Eos # (Auto) Baso # (Auto) Abs Immat Gran (auto) Absolute Neuts (auto) Absolute Nucleated RBC Nucleated RBC % (auto) Smear Tech's Comments PT 14.7 H INR 1.3 H D-Dimer Anion Gap Estim Creat Clear Calc Estimated GFR POC Glucose Random Glucose Lactic Acid 5.6 H* Calcium Magnesium Total Bilirubin AST ALT Alkaline Phosphatase Troponin I High Sens 3.9 Total Protein Albumin Lipase Urine Color Urine Appearance Urine pH Ur Specific [place] Urine Protein Urine Glucose (UA) Urine Ketones Urine Blood Urine Nitrite Ur Leukocyte Esterase Urine RBC Urine WBC Urine WBC Clumps Ur Squamous Epith Cells Urine Bacteria Acetone, Qual COVID-19 (REILLY) COVID-19 Clin Com 11/01/20 11/01/20 11/01/20 02:32 02:32 05:04 MCV MCH MCHC RDW Plt Count MPV Immature Gran % (Auto) Neut % (Auto) Lymph % (Auto) [place] % (Auto) Eos % (Auto) Baso % (Auto) Lymph # (Auto) [place] # (Auto) Eos # (Auto) Baso # (Auto) Abs Immat Gran (auto) Absolute Neuts (auto) Absolute Nucleated RBC Nucleated RBC % (auto) Smear Tech's Comments PT INR D-Dimer [id number] Anion Gap Estim Creat Clear Calc Estimated GFR POC Glucose Random Glucose Lactic Acid Calcium Magnesium Total Bilirubin AST ALT Alkaline Phosphatase Troponin I High Sens Total Protein Albumin Lipase Urine Color KRISTA Urine Appearance CLOUDY Urine pH 6.5 Ur Specific [place] <= 1.005 Urine Protein 1+ H Urine Glucose (UA) NEG Urine Ketones NEG Urine Blood 3+ H Urine Nitrite NEG Ur Leukocyte Esterase TRACE H Urine RBC TNTC H Urine WBC 10-14 H Urine WBC Clumps NOTED Ur Squamous Epith Cells 1+ Urine Bacteria 1+ Acetone, Qual COVID-19 (REILLY) Negative COVID-19 Clin Com See Note Imaging Radiologist's Impressions: Impressions Head CT 11/01/20 02:12 IMPRESSION: No acute intracranial pathology. Chest CTA 11/01/20 03:55 IMPRESSION: * No pulmonary embolism. * Mild cardiomegaly with dilatation of the main pulmonary artery suggestive of pulmonary hypertension. * No acute pulmonary findings. * Bibasilar dependent subsegmental atelectasis. VTE: negative Assessment and Plan (1) Syncope: Status: Acute 65-year-old female with a past medical history of hypertension, diabetes, obesity, history of recurrent UTI, recent diagnosis of renal calculi status post cystoscopy/lithotripsy/stent placement on 10/31/[address] huerta presented to the hospital with a chief complaint of syncope. Syncope: Patient had soft blood pressure on presentation. As reported by the patient's family patient had low blood pressure at home. Likely volume depletion/vasovagal etiology. Exam nonfocal CT head negative Fall precautions PT/OT eventually. Monitor on telemetry Cycle cardiac enzymes Hypomagnesemia: Repleted Lactic acidosis: Patient on IV fluids Transaminitis: Likely in the setting of sepsis/hypotension. Monitor liver enzymes. Acute hepatitis panel. Will obtain right upper quadrant ultrasound. UTI: Continue ceftriaxone. Follow up cultures. Will also obtain renal ultrasound given recent procedure. Hypertension: Will hold home antihypertensives as patient will pressure on the lower side on presentation. Diabetes: Insulin sliding scale. Hold home metformin. DVT prophylaxis: SCD boots Code status: Full code Quality Stroke Does the patient have a stroke diagnosis?: No VTE Prior VTE?: No VTE Risk Level:: Medical - moderate - high VTE Device Contraindication: N/A - Device Ordered VTE Drug Contraindication: Treatment Not Indicated
[2020-11-01 05:59] LABS: ~Lactic Acid-LAB USE ONLY 3.1 mmol/L (0.5-2.0)
[2020-11-01] MEDS: 0.9 % Sodium Chloride 1,000 ML 75 ML IVCONT (06:51)
[2020-11-01 07:03] LABS: Magnesium 1.5 mg/dL (1.6-2.6)
[2020-11-01 07:22] LABS: Glucose, Whole Blood 215 mg/dL (60-115)
[2020-11-01 07:23] LABS: Troponin-I High Sensitivity < 3.5 ng/L (<3.5-17.0)
[2020-11-01 07:26] LABS: Alanine Aminotransferase 141 U/L (0-31); Albumin Level 3.2 g/dL (3.5-5.0); Alkaline Phosphatase 90 U/L (39-117); Anion Gap 15 (12-20); Aspartate Amino Transferase 114 U/L (5-31); Bilirubin Total 1.6 mg/dL (0.0-1.0); Blood Urea Nitrogen 18 mg/dL (9-16); Calcium 8.2 mg/dL (8.4-10.2); Carbon Dioxide 20 mmol/L (22-29); Chloride 109 mmol/L (96-108); Creatinine Clr Calc Pharmacy 70.8; Estimated Glomerular Filt Rate 55; Glucose Random 212 mg/dL (60-115); Potassium 4.1 mmol/L (3.3-5.1); Sodium 140 mmol/L (135-145); Total Protein 5.9 g/dL (6.5-8.0)
[2020-11-01 07:38] LABS: Reflex Lactate? 2 Y
[2020-11-01] MEDS: Insulin Lispro 100 UNIT/ML 3 ML VIAL SUBCUT ×4 (07:48→20:41)
[2020-11-01 08:39] LABS: HBc Num1 0.14 S/CO (0.00-0.79); HBsAGNum1 0.19 S/CO (0.00-0.99); Hepatitis B Core Antibody Nonreactive (Nonreactive); Hepatitis B Surface Antigen Negative (Negative); ~Hepatitis C Antibody Nonreactive (Nonreactive)
[2020-11-01 08:41] LABS: HBS Num1 0.16 mIU/mL (0-7.99); ~Hepatitis B Surface Antibody NONREACTIVE (Nonreactive)
--- NOTE | 2020-11-01 09:26 | MHC.CM.PN ---
pt lives alone in apt. she reports that she is independent in her care. she has family including a daughter that lives nearby that can help patient if she needs it. this will include a ride home at dc. pt denies the need for vna at dc. dc plan is home no svcs. cm to cont. to follow.
--- NOTE | 2020-11-01 09:40 | PC.NURSE ---
Patient in ED 11/01/20 with c/o inability to void. Postop call done with assistance of [facility] [employer] Manager. Dr Flowers's office contacted and message left for Dr Flowers of patient's disposition
[2020-11-01] MEDS: Levothyroxine Sodium 175 MCG TABLET PO (11:13)
[2020-11-01] MEDS: 0.9 % Sodium Chloride 1,000 ML 150 ML IVCONT (11:13)
[2020-11-01 11:16] LABS: Glucose, Whole Blood 183 mg/dL (60-115)
[2020-11-01] MEDS: Acetaminophen 325 MG TABLET 650 MG PO ×2 (11:28→20:49)
[2020-11-01 16:21] LABS: Glucose, Whole Blood 231 mg/dL (60-115)
--- NOTE | 2020-11-01 16:22 | PM.UROCN ---
History of Present Illness Consult details Consult date: 11/01/20 Narrative: Gisela is a pleasant 65-year-old Portuguese-speaking female. Yesterday underwent ureteroscopy with laser lithotripsy often imbedded stone in her left proximal ureter. Had previously presented with infection from the stone. Came back to the hospital that evening with dizziness and questions of losing consciousness. Prior episode of stroke. Has been admitted for observation. Last UA that was performed showed no evidence of infection. Current microbiology is pending. WBC up to 14 likely reactive. Has been given antibiotics At this point in time would just keep her hydrated Review of Systems Constitutional: Constitutional: Denies chills and Denies fever(s) Cardiovascular: Cardiovascular: Reports no additional cardiovascular complaints and Denies syncope Respiratory: Respiratory: Denies cough Gastrointestinal: Gastrointestinal: Denies abdominal pain and Denies heartburn Genitourinary: Genitourinary: Reports as per HPI and Denies change in libido Neurologic: Denies syncope Psychiatric: Psychiatric: Denies change in libido Endocrine: Endocrine: Denies change in libido [facility] Past Medical History Medical History Diabetes Hypertension Increased BMI Surgical History Surgical History H/O colonoscopy H/O hernia repair H/O ovarian cystectomy Social History Social History Household Members: Family Housing: Apartment Do you presently have visiting nurse or other home services: No Alcohol intake: never Patient Tobacco Use Status: Never used Tobacco Second Hand Smoke Exposure: No Use of substances other than those prescribed or required for medical reasons: No Have you been hit, kicked, punched, or otherwise hurt by someone within the past year? If so, by whom?: No Do you feel safe in your current relationship?: No Current Relationship Is there a partner from a previous relationship who is making you feel unsafe now?: No Are you made to feel afraid or neglected: No Orthodox Healthcare Practices: Pentacostal Advance Directives: No Do you have thoughts of harming others: None Do you have a plan to hurt others: No Plan Recently lost weight without trying: Yes How much weight loss: 2-13 pounds Eating poorly because of decreased appetite: Yes Nutrition screen score: 4 Nutrition Risks: No Nutritional Risk Patient : No service: No Current occupational status: disabled Meds Allergies Allergy/AdvReac Type Severity Reaction Status Date / Time lactose [LACTOSE] Allergy Unknown Gastrointestinal Verified 10/31/20 12:25 Upset Sulfa (Sulfonamide Allergy Unknown ITCHY Verified 10/25/20 11:43 Antibiotics) [SULFA (SULFONAMIDE ANTIBIOTICS)] Active Medications: Current Medications Generic Name Dose Route Start Last Admin Trade Name Freq PRN Reason Stop Dose Admin Acetaminophen 650 mg 11/01/20 05:48 11/01/20 11:28 Acetaminophen 325 Mg Tablet PO 650 mg Q6H PRN Administration Pain, Mild (Pain Scale 1-3) Aspirin 81 mg 11/02/20 09:00 Aspirin 81 Mg Tab.Chew PO DAILY KEVIN Famotidine 40 mg 11/02/20 09:00 Famotidine 20 Mg Tablet PO DAILY KEVIN Sodium Chloride 1,000 mls @ 150 mls/hr 11/01/20 06:00 11/01/20 11:13 Ns IVCONT 150 mls/hr .Q6H40M KEVIN Administration Ceftriaxone Sodium 1 gm/ 50 mls @ 100 mls/hr 11/02/20 03:00 Sodium Chloride IV Q24H [facility] Insulin Human Lispro 0 - 10 unit 11/01/20 07:30 11/01/20 11:27 Insulin Lispro 100 Unit/Ml 3 Ml Vial SUBCUT 2 unit QIDACHS KEVIN Administration Protocol Levothyroxine Sodium 175 mcg 11/01/20 10:00 11/01/20 11:13 Levothyroxine Sodium 175 Mcg Tablet PO 175 mcg DAILY KEVIN Administration Melatonin 6 mg 11/01/20 05:48 Melatonin 3 Mg Tablet PO BEDTIME PRN Insomnia Oxycodone HCl 5 mg 11/01/20 05:48 Oxycodone Hcl Immed Release 5 Mg Tablet PO Q6H PRN Pain, Severe (Pain Scale 7-10) Senna 17.2 mg 11/01/20 05:48 Sennosides 8.6 Mg Tablet PO BEDTIME PRN Constipation Sodium Chloride 3 ml 11/01/20 08:00 11/01/20 07:20 0.9 % Sodium Chloride Flush 3 Ml Syringe IVFLUSH Not Given QSHIFT KEVIN Tamsulosin HCl 0.4 mg 11/01/20 21:00 Tamsulosin Hcl 0.4 Mg Capsule PO BEDTIME [facility] Home Medications Medication Instructions Recorded Confirmed Last Taken Type aspirin 81 mg tablet 81 mg PO DAILY 11/01/20 11/01/20 10/30/20 History famotidine 40 mg tablet 40 mg PO DAILY 11/01/20 11/01/20 10/30/20 History glipizide 5 mg tablet 5 mg PO DAILY 11/01/20 11/01/20 10/30/20 History levothyroxine 175 mcg tablet 175 mcg PO DAILY 11/01/20 11/01/20 10/30/20 History (Synthroid) losartan 100 mg tablet 100 mg PO DAILY 11/01/20 11/01/20 10/30/20 History metformin 850 mg tablet 850 mg PO BID 11/01/20 11/01/20 10/30/20 History Physical Exam Vital Signs: Vital Signs: Last Vital Signs Temp 97.7 F 11/01/20 15:22 Pulse 89 11/01/20 15:22 Resp 18 11/01/20 15:22 BP 142/66 H 11/01/20 15:22 Pulse Ox 94 11/01/20 15:22 Body Mass Index 37.5 Const: General: cooperative, healthy appearing, comfortable and no acute distress Orientation/consciousness: patient oriented x3 HENMT: Face and sinus: Yes normal facial exam Mouth: moist mucous membranes Neck: Neck: Yes normal visual inspection, Yes full ROM and Yes trachea midline Chest: Chest palpation & inspection: normal inspection of the chest Resp: Effort & Inspection: normal respiratory effort, able to speak in complete sentences and no respiratory distress GI: Inspection: Yes normal to inspection Back/Spine/Pelvis: Cervical Spine: normal cervical lordosis Thoracic/Lumbar Spine: thoracic and lumbar spine normal to inspection Skin: General skin exam: no rashes or lesions noted Neuro: General: patient oriented x3, gait normal, tone normal and moves all extremities Extrem: General: Yes normal to inspection and Yes capillary refill normal Results Labs Result diagrams: 11/01/20 02:11 11/01/20 06:21 Labs: Abnormal lab results 11/01/20 11/01/20 11/01/20 Range/Units 01:53 02:11 02:11 WBC 14.0 H (4.8-10.8) X10*3/uL Immature Gran % (Auto) 1.6 H (0.0-0.4) % Neut % (Auto) 94.4 H (45-73) % Lymph % (Auto) 2.3 L (20-40) % [place] % (Auto) 1.4 L (2-11) % Lymph # (Auto) 0.3 L (1.2-4.9) X10*3/uL Abs Immat Gran (auto) 0.22 H (0.00-0.03) X10*3/uL Absolute Neuts (auto) 13.2 H (2.0-8.3) X10*3/uL PT (9.9-13.0) SEC INR (0.9-1.1) Chloride (96-108) mmol/L Carbon Dioxide (22-29) mmol/L BUN 20 H (9-16) mg/dL POC Glucose 280 H (60-115) mg/dL Random Glucose 279 H D (60-115) mg/dL Lactic Acid (0.5-2.0) mmol/L Lactic Acid Fup @ 2Hr (0.5-2.0) mmol/L Lactic Acid Fup @ 4Hr (0.5-2.0) mmol/L Calcium (8.4-10.2) mg/dL Magnesium 1.3 L* (1.6-2.6) mg/dL Total Bilirubin 1.8 H (0.0-1.0) mg/dL AST 165 H (5-31) U/L ALT 169 H (0-31) U/L Total Protein (6.5-8.0) g/dL Albumin (3.5-5.0) g/dL Urine Protein (NEG-TRACE) MG/DL Urine Blood (NEG) Ur Leukocyte Esterase (NEG) Urine RBC (0) /HPF Urine WBC (0-4) /HPF 11/01/20 11/01/20 11/01/20 Range/Units 02:11 02:32 05:03 WBC (4.8-10.8) X10*3/uL Immature Gran % (Auto) (0.0-0.4) % Neut % (Auto) (45-73) % Lymph % (Auto) (20-40) % [place] % (Auto) (2-11) % Lymph # (Auto) (1.2-4.9) X10*3/uL Abs Immat Gran (auto) (0.00-0.03) X10*3/uL Absolute Neuts (auto) (2.0-8.3) X10*3/uL PT 14.7 H (9.9-13.0) SEC INR 1.3 H (0.9-1.1) Chloride (96-108) mmol/L Carbon Dioxide (22-29) mmol/L BUN (9-16) mg/dL POC Glucose (60-115) mg/dL Random Glucose (60-115) mg/dL Lactic Acid 5.6 H* (0.5-2.0) mmol/L Lactic Acid Fup @ 2Hr 3.1 H* (0.5-2.0) mmol/L Lactic Acid Fup @ 4Hr (0.5-2.0) mmol/L Calcium (8.4-10.2) mg/dL Magnesium (1.6-2.6) mg/dL Total Bilirubin (0.0-1.0) mg/dL AST (5-31) U/L ALT (0-31) U/L Total Protein (6.5-8.0) g/dL Albumin (3.5-5.0) g/dL Urine Protein (NEG-TRACE) MG/DL Urine Blood (NEG) Ur Leukocyte Esterase (NEG) Urine RBC (0) /HPF Urine WBC (0-4) /HPF 11/01/20 11/01/20 11/01/20 Range/Units 05:04 06:21 06:21 WBC (4.8-10.8) X10*3/uL Immature Gran % (Auto) (0.0-0.4) % Neut % (Auto) (45-73) % Lymph % (Auto) (20-40) % [place] % (Auto) (2-11) % Lymph # (Auto) (1.2-4.9) X10*3/uL Abs Immat Gran (auto) (0.00-0.03) X10*3/uL Absolute Neuts (auto) (2.0-8.3) X10*3/uL PT (9.9-13.0) SEC INR (0.9-1.1) Chloride 109 H (96-108) mmol/L Carbon Dioxide 20 L (22-29) mmol/L BUN 18 H (9-16) mg/dL POC Glucose (60-115) mg/dL Random Glucose 212 H (60-115) mg/dL Lactic Acid (0.5-2.0) mmol/L Lactic Acid Fup @ 2Hr (0.5-2.0) mmol/L Lactic Acid Fup @ 4Hr (0.5-2.0) mmol/L Calcium 8.2 L D (8.4-10.2) mg/dL Magnesium 1.5 L (1.6-2.6) mg/dL Total Bilirubin 1.6 H (0.0-1.0) mg/dL AST 114 H (5-31) U/L ALT 141 H (0-31) U/L Total Protein 5.9 L (6.5-8.0) g/dL Albumin 3.2 L (3.5-5.0) g/dL Urine Protein 1+ H (NEG-TRACE) MG/DL Urine Blood 3+ H (NEG) Ur Leukocyte Esterase TRACE H (NEG) Urine RBC TNTC H (0) /HPF Urine WBC 10-14 H (0-4) /HPF 11/01/20 11/01/20 11/01/20 Range/Units 07:18 08:35 11:12 WBC (4.8-10.8) X10*3/uL Immature Gran % (Auto) (0.0-0.4) % Neut % (Auto) (45-73) % Lymph % (Auto) (20-40) % [place] % (Auto) (2-11) % Lymph # (Auto) (1.2-4.9) X10*3/uL Abs Immat Gran (auto) (0.00-0.03) X10*3/uL Absolute Neuts (auto) (2.0-8.3) X10*3/uL PT (9.9-13.0) SEC INR (0.9-1.1) Chloride (96-108) mmol/L Carbon Dioxide (22-29) mmol/L BUN (9-16) mg/dL POC Glucose 215 H 183 H (60-115) mg/dL Random Glucose (60-115) mg/dL Lactic Acid (0.5-2.0) mmol/L Lactic Acid Fup @ 2Hr (0.5-2.0) mmol/L Lactic Acid Fup @ 4Hr 4.0 H* (0.5-2.0) mmol/L Calcium (8.4-10.2) mg/dL Magnesium (1.6-2.6) mg/dL Total Bilirubin (0.0-1.0) mg/dL AST (5-31) U/L ALT (0-31) U/L Total Protein (6.5-8.0) g/dL Albumin (3.5-5.0) g/dL Urine Protein (NEG-TRACE) MG/DL Urine Blood (NEG) Ur Leukocyte Esterase (NEG) Urine RBC (0) /HPF Urine WBC (0-4) /HPF 11/01/20 Range/Units 16:14 WBC (4.8-10.8) X10*3/uL Immature Gran % (Auto) (0.0-0.4) % Neut % (Auto) (45-73) % Lymph % (Auto) (20-40) % [place] % (Auto) (2-11) % Lymph # (Auto) (1.2-4.9) X10*3/uL Abs Immat Gran (auto) (0.00-0.03) X10*3/uL Absolute Neuts (auto) (2.0-8.3) X10*3/uL PT (9.9-13.0) SEC INR (0.9-1.1) Chloride (96-108) mmol/L Carbon Dioxide (22-29) mmol/L BUN (9-16) mg/dL POC Glucose 231 H (60-115) mg/dL Random Glucose (60-115) mg/dL Lactic Acid (0.5-2.0) mmol/L Lactic Acid Fup @ 2Hr (0.5-2.0) mmol/L Lactic Acid Fup @ 4Hr (0.5-2.0) mmol/L Calcium (8.4-10.2) mg/dL Magnesium (1.6-2.6) mg/dL Total Bilirubin (0.0-1.0) mg/dL AST (5-31) U/L ALT (0-31) U/L Total Protein (6.5-8.0) g/dL Albumin (3.5-5.0) g/dL Urine Protein (NEG-TRACE) MG/DL Urine Blood (NEG) Ur Leukocyte Esterase (NEG) Urine RBC (0) /HPF Urine WBC (0-4) /HPF Short CBC 11/01/20 Range/Units 02:11 WBC 14.0 H (4.8-10.8) X10*3/uL Hgb 13.4 (12.0-16.0) g/dl Hct 40.9 (37-47) % Plt Count 209 (160-400) X10*3/uL BMP 11/01/20 11/01/20 02:11 06:21 Sodium 139 140 Potassium 3.9 4.1 Chloride 104 109 H Carbon Dioxide 22 20 L BUN 20 H 18 H Creatinine 1.33 1.02 Calcium 9.5 8.2 L D Liver Function 11/01/20 11/01/20 Range/Units 02:11 06:21 Total Bilirubin 1.8 H 1.6 H (0.0-1.0) mg/dL AST 165 H 114 H (5-31) U/L ALT 169 H 141 H (0-31) U/L Alkaline Phosphatase 107 90 (39-117) U/L Albumin 3.7 3.2 L (3.5-5.0) g/dL Urine 11/01/20 Range/Units 05:04 Urine Color KRISTA Urine Appearance CLOUDY Urine pH 6.5 (5.0-8.0) Ur Specific [place] <= 1.005 (1.005-1.025) Urine Protein 1+ H (NEG-TRACE) MG/DL Urine Glucose (UA) NEG (NEG) MG/DL All other labs normal. Assessment and Plan (1) Nephrolithiasis: Status: Acute Observation with rehydration Awaiting microbiology results Procedures Date of Service Date of Service: 11/01/20
--- NOTE | 2020-11-01 16:41 | P.EN_ITS ---
Event Note Date of Service: 11/01/20 Event Note: 65-year-old female with a past medical history of hypertension, di abetes, obesity, history of recurrent UTI, recent diagnosis of renal calculi status post cystoscopy/lithotripsy/stent placement on 10/31/[address] Sanchez presented to the hospital with a chief complaint of syncope. Syncope ddx sepsis due to UTI,vasovagal,hypotension Patient on admission noted to be tachypneic tachycardic, had leukocytosis ,low blood pressure, lactic acidosis At present awake alert feeling better CT head negative,CTA chest neg for PE showed pulm htn, renal ultrasound showed no acute abnormality Continue IV fluid, sepsis focused exam done, follow clinical course. Hypomagnesemia:? Repleted follow labs Lactic acidosis:? Continue IV fluids follow level Transaminitis:? Likely in the setting of sepsis/hypotension.? Monitor liver enzymes.? Follow hepatitis panel.? right upper quadrant abdominal ultrasound showed no acute abnormality UTI:? Continue ceftriaxone.? Follow urine and blood culture Hypertension:? Will hold home antihypertensives due to low blood pressure Diabetes:? Insulin sliding scale.? Hold home metformin.
[2020-11-01] MEDS: 0.9 % Sodium Chloride Flush 3 ML SYRINGE IVFLUSH (17:02)
[2020-11-01] MEDS: 0.9 % Sodium Chloride 1,000 ML 100 ML IVCONT (18:19)
[2020-11-01 20:15] LABS: Glucose, Whole Blood 198 mg/dL (60-115)
[2020-11-01] MEDS: Tamsulosin HCL 0.4 MG CAPSULE PO (20:42)
[2020-11-01] MEDS: Melatonin 3 MG TABLET 6 MG PO (20:49)
[2020-11-02] VITALS (9 sets, daily range): BP systolic 118–183; BP diastolic 60–89; PULSE 69–117; RESP 16–18; TEMP 36.1–37; O2SAT 9–94
[2020-11-02] MEDS: cefTRIAXone sodium 1 GM in 0.9 % Sodium Chloride 50 ML IV (02:24)
[2020-11-02] MEDS: oxyCODONE HCl Immed Release 5 MG TABLET PO (02:28)
[2020-11-02] MEDS: 0.9 % Sodium Chloride 1,000 ML 100 ML IVCONT ×2 (04:24→16:38)
[2020-11-02 04:53] LABS: Hepatitis A Antibody IgM 0.13 Index (0-0.79); ~Hepatitis A Antibody IgM Nonreactive (Nonreactive)
[2020-11-02] MEDS: Acetaminophen 325 MG TABLET 650 MG PO ×2 (05:48→16:54)
[2020-11-02 07:19] LABS: Glucose, Whole Blood 151 mg/dL (60-115)
[2020-11-02] MEDS: Famotidine 20 MG TABLET 40 MG PO (08:05)
[2020-11-02] MEDS: Insulin Lispro 100 UNIT/ML 3 ML VIAL SUBCUT ×4 (08:06→20:49)
[2020-11-02] MEDS: Aspirin 81 MG TAB.CHEW PO (08:06)
[2020-11-02] MEDS: Levothyroxine Sodium 175 MCG TABLET PO (08:06)
[2020-11-02 11:08] LABS: Glucose, Whole Blood 230 mg/dL (60-115)
[2020-11-02 13:43] LABS: MANUAL DIFF FLAG NO
[2020-11-02 13:50] LABS: Basophils Absolute Auto 0.1 X10*3/uL (0.0-0.2); Basophils Percent Auto 0.4 % (0-2); Eosinophils Absolute Auto 0.9 X10*3/uL (0.0-0.4); Eosinophils Percent Auto 6.9 % (0-4); Hematocrit 35.7 % (37-47); Hemoglobin 11.8 g/dl (12.0-16.0); Imm Gran Abs Auto 0.18 X10*3/uL (0.00-0.03); Imm Gran Pct Auto 1.3 % (0.0-0.4); Lymphocytes Absolute Auto 1.5 X10*3/uL (1.2-4.9); Lymphocytes Percent Auto 11.2 % (20-40); Mean Corpuscular HGB Conc 33.1 g/dl (31.0-35.0); Mean Corpuscular Hemoglobin 30.8 pg (27.0-33.0); Mean Corpuscular Volume 93.2 fL (80-98); Mean Platelet Volume 11.5 fL (9.4-12.3); Monocytes Absolute Auto 0.8 X10*3/uL (0.1-1.2); Monocytes Percent Auto 5.6 % (2-11); Neutrophils Percent Auto 74.6 % (45-73); Platelet Count 147 X10*3/uL (160-400); Red Blood Count 3.83 X10*6/uL (4.20-5.50); Red Cell Distribution Width 13.4 % (11.0-16.0); White Blood Count 13.4 X10*3/uL (4.8-10.8)
[2020-11-02 14:30] LABS: Alanine Aminotransferase 90 U/L (0-31); Albumin Level 3.2 g/dL (3.5-5.0); Alkaline Phosphatase 107 U/L (39-117); Anion Gap 13 (12-20); Aspartate Amino Transferase 38 U/L (5-31); Bilirubin Direct 0.5 mg/dL (0.0-0.5); Bilirubin Total 0.9 mg/dL (0.0-1.0); Blood Urea Nitrogen 12 mg/dL (9-16); Calcium 8.4 mg/dL (8.4-10.2); Carbon Dioxide 22 mmol/L (22-29); Chloride 112 mmol/L (96-108); Creatinine Clr Calc Pharmacy 93.8; Estimated Glomerular Filt Rate > 60; Glucose Random 219 mg/dL (60-115); Magnesium 1.5 mg/dL (1.6-2.6); Potassium 3.7 mmol/L (3.3-5.1); Sodium 143 mmol/L (135-145); Total Protein 5.8 g/dL (6.5-8.0)
--- NOTE | 2020-11-02 15:03 | MHC.CM.PN ---
per rounds pt dc plan remains home
[2020-11-02 16:18] LABS: Glucose, Whole Blood 173 mg/dL (60-115)
[2020-11-02] MEDS: 0.9 % Sodium Chloride Flush 3 ML SYRINGE IVFLUSH ×2 (16:38→23:52)
--- NOTE | 2020-11-02 16:54 | HO.PM.IMPN ---
Subjective Subjective Date of Service: 11/02/20 Interval History: Complaining of headache otherwise denies, denies dizziness, no weakness, no chest pain, no palpitation, no other acute issues overnight. Review of Systems General headache, no dizziness no fever chills. CVS no chest pain, no palpitation. Respiratory no cough, no sob. Gastrointestinal no nausea, no vomiting, no abdominal pain Physical Exam Vital Signs: Vital Signs: Last Vital Signs Temp 97.2 F 11/02/20 15:07 Pulse 78 11/02/20 15:07 Resp 17 11/02/20 15:07 BP 183/89 H 11/02/20 15:07 Pulse Ox 9 L 11/02/20 15:07 Body Mass Index 37.5 General resting comfortably in no acute distress. Neck supple no JVD. CVS regular rate rhythm, Respiratory lungs clear to auscultation, no respiratory distress, no wheeze, no rhonchi. Gastrointestinal abdomen soft, nontender, bowel sounds audible, no guarding , no rigidity. Extremities no edema. Neuro nonfocal Skin no rash Objective Data Current Medications Generic Name Dose Route Start Last Admin Trade Name Freq PRN Reason Stop Dose Admin Acetaminophen 650 mg 11/01/20 05:48 11/02/20 05:48 Acetaminophen 325 Mg Tablet PO 650 mg Q6H PRN Administration Pain, Mild (Pain Scale 1-3) Aspirin 81 mg 11/02/20 09:00 11/02/20 08:06 Aspirin 81 Mg Tab.Chew PO 81 mg DAILY KEVIN Administration Famotidine 40 mg 11/02/20 09:00 11/02/20 08:05 Famotidine 20 Mg Tablet PO 40 mg DAILY KEVIN Administration Sodium Chloride 1,000 mls @ 100 mls/hr 11/01/20 06:00 11/02/20 16:38 Ns IVCONT 100 mls/hr .Q10H KEVIN Administration Ceftriaxone Sodium 1 gm/ 50 mls @ 100 mls/hr 11/02/20 03:00 11/02/20 03:00 Sodium Chloride IV Infused Q24H KEVIN Infusion Insulin Human Lispro 0 - 10 unit 11/01/20 07:30 11/02/20 16:38 Insulin Lispro 100 Unit/Ml 3 Ml Vial SUBCUT 2 unit QIDACHS KEVIN Administration Protocol Levothyroxine Sodium 175 mcg 11/01/20 10:00 11/02/20 08:06 Levothyroxine Sodium 175 Mcg Tablet PO 175 mcg DAILY KEVIN Administration Melatonin 6 mg 11/01/20 05:48 11/01/20 20:49 Melatonin 3 Mg Tablet PO 6 mg BEDTIME PRN Administration Insomnia Oxycodone HCl 5 mg 11/01/20 05:48 11/02/20 02:28 Oxycodone Hcl Immed Release 5 Mg Tablet PO 5 mg Q6H PRN Administration Pain, Severe (Pain Scale 7-10) Senna 17.2 mg 11/01/20 05:48 Sennosides 8.6 Mg Tablet PO BEDTIME PRN Constipation Sodium Chloride 3 ml 11/01/20 08:00 11/02/20 16:38 0.9 % Sodium Chloride Flush 3 Ml Syringe IVFLUSH 3 ml QSHIFT KEVIN Administration Tamsulosin HCl 0.4 mg 11/01/20 21:00 11/01/20 20:42 Tamsulosin Hcl 0.4 Mg Capsule PO 0.4 mg BEDTIME KEVIN Administration Labs CBC & Chem 7: 11/02/20 13:25 11/02/20 13:25 Labs: Laboratory Results - last 24 hr 11/01/20 11/01/20 11/02/20 06:21 20:08 07:15 MCV MCH MCHC RDW Plt Count MPV Immature Gran % (Auto) Neut % (Auto) Lymph % (Auto) [place] % (Auto) Eos % (Auto) Baso % (Auto) Lymph # (Auto) [place] # (Auto) Eos # (Auto) Baso # (Auto) Abs Immat Gran (auto) Absolute Neuts (auto) Absolute Nucleated RBC Nucleated RBC % (auto) Anion Gap Estim Creat Clear Calc Estimated GFR POC Glucose 198 H 151 H Random Glucose Calcium Magnesium Total Bilirubin Direct Bilirubin AST ALT Alkaline Phosphatase Total Protein Albumin Hepatitis A IgM Ab Nonreactive 11/02/20 11/02/20 11/02/20 11:01 13:25 13:25 MCV 93.2 MCH 30.8 MCHC 33.1 RDW 13.4 Plt Count 147 L D MPV 11.5 Immature Gran % (Auto) 1.3 H Neut % (Auto) 74.6 H Lymph % (Auto) 11.[address] [place] % (Auto) 5.6 Eos % (Auto) 6.9 H Baso % (Auto) 0.4 Lymph # (Auto) 1.5 [place] # (Auto) 0.8 Eos # (Auto) 0.9 H Baso # (Auto) 0.1 Abs Immat Gran (auto) 0.18 H Absolute Neuts (auto) 10.0 H Absolute Nucleated RBC 0.000 Nucleated RBC % (auto) 0.0 Anion Gap 13 Estim Creat Clear Calc 93.8 Estimated GFR > 60 POC Glucose 230 H Random Glucose 219 H Calcium 8.4 Magnesium 1.5 L Total Bilirubin 0.9 Direct Bilirubin 0.5 AST 38 H D ALT 90 H Alkaline Phosphatase 107 Total Protein 5.8 L Albumin 3.2 L Hepatitis A IgM Ab 11/02/20 16:14 MCV MCH MCHC RDW Plt Count MPV Immature Gran % (Auto) Neut % (Auto) Lymph % (Auto) [place] % (Auto) Eos % (Auto) Baso % (Auto) Lymph # (Auto) [place] # (Auto) Eos # (Auto) Baso # (Auto) Abs Immat Gran (auto) Absolute Neuts (auto) Absolute Nucleated RBC Nucleated RBC % (auto) Anion Gap Estim Creat Clear Calc Estimated GFR POC Glucose 173 H Random Glucose Calcium Magnesium Total Bilirubin Direct Bilirubin AST ALT Alkaline Phosphatase Total Protein Albumin Hepatitis A IgM Ab Microbiology Microbiology Results: Microbiology 11/01/20 00:00 Urine Culture - Final Urine clean catch - Clean Catch Midstream No growth. 11/01/20 02:32 Blood Culture - Preliminary Blood - Venous No growth after 24 hours. 11/01/20 02:11 Blood Culture - Preliminary Blood - Venous No growth after 24 hours. Assessment and Plan (1) Syncope: Status: Acute (2) Hypomagnesemia: Status: Acute (3) UTI (urinary tract infection): Status: Acute (4) Nephrolithiasis: Status: Acute (5) Sepsis: Status: Acute Assessment and Plan: 65-year-old female with a past medical history of hypertension, diabetes, obesity, history of recurrent UTI, recent diagnosis of renal calculi status post cystoscopy/lithotripsy/stent placement on 10/31/[address] Sanchez presented to the hospital with a chief complaint of syncope. Syncope ddx? sepsis due to UTI,? vasovagal/hypotension ?Patient on admission noted to be tachypneic tachycardic, leukocytosis ,low blood pressure, lactic acidosis ?All symptoms of sepsis resolved, patient feeling better, complaining of mild generalized weakness, no dizziness ?CT head negative,CTA chest neg for PE showed pulm htn, renal ultrasound showed no acute abnormality WBC trending down follow CBC ?Will DC IV fluid, continue IV antibiotics follow urine and blood culture. Recommend out of bed and ambulation underwent ureteroscopy with laser lithotripsy for imbedded stone in her left proximal ureter on 10/[address] Sanchez on 11/01 he recommend to keep her hydrated. ? Hypomagnesemia:? Magnesium remains low at 1.5 continue to replete and follow labs Lactic acidosis:? follow lactic acid level Transaminitis:? Likely in the setting of sepsis/hypotension.? Liver enzyme trending down ,hepatitis panel negative, right upper quadrant abdominal ultrasound showed no acute abnormality UTI:? Continue iv ceftriaxone day 2.? Follow urine and blood culture Hypertension:? On admission noted to have low blood pressure therefore losartan held will resume losartan since BP elevated today Diabetes:? Blood sugars elevated, continue Insulin sliding scale resume Glucotrol, continue to hold metformin, resume at discharge DVT prophylaxis compression boots Quality Stroke Does the patient have a stroke diagnosis?: No VTE Prior VTE?: No VTE Risk Level:: Medical - moderate - high VTE Device Contraindication: N/A - Device Ordered VTE Drug Contraindication: Treatment Not Indicated
[2020-11-02] MEDS: Losartan Potassium 50 MG TABLET 100 MG PO (17:08)
[2020-11-02] MEDS: Magnesium Sulfate/H2O 2 GM/50 ML PIGGYBACK IV (17:20)
[2020-11-02 20:04] LABS: Glucose, Whole Blood 210 mg/dL (60-115)
[2020-11-02] MEDS: Tamsulosin HCL 0.4 MG CAPSULE PO (20:49)
[2020-11-03 03:10] VITALS: BP 150/67; PULSE 75; RESP 18; TEMP 37.1; O2SAT 96
[2020-11-03] MEDS: cefTRIAXone sodium 1 GM in 0.9 % Sodium Chloride 50 ML IV (03:11)
[2020-11-03] MEDS: Melatonin 3 MG TABLET 6 MG PO (03:24)
[2020-11-03 06:50] LABS: Imm Gran Abs Auto 0.11 X10*3/uL (0.00-0.03); MANUAL DIFF FLAG SCAN; PLT CLUMP 1; SCAN SMEAR FLAG 1
[2020-11-03 06:52] LABS: Basophils Absolute Auto 0.1 X10*3/uL (0.0-0.2); Basophils Percent Auto 0.4 % (0-2); Eosinophils Absolute Auto 0.8 X10*3/uL (0.0-0.4); Eosinophils Percent Auto 6.4 % (0-4); Hematocrit 37.3 % (37-47); Hemoglobin 12.3 g/dl (12.0-16.0); Imm Gran Pct Auto 0.9 % (0.0-0.4); Lymphocytes Absolute Auto 1.5 X10*3/uL (1.2-4.9); Lymphocytes Percent Auto 12.4 % (20-40); Mean Corpuscular Hemoglobin 30.3 pg (27.0-33.0); Mean Corpuscular Volume 91.9 fL (80-98); Monocytes Absolute Auto 0.7 X10*3/uL (0.1-1.2); Monocytes Percent Auto 5.6 % (2-11); Neutrophils Absolute Auto 8.7 X10*3/uL (2.0-8.3); Neutrophils Percent Auto 74.3 % (45-73); Red Blood Count 4.06 X10*6/uL (4.20-5.50); Red Cell Distribution Width 13.1 % (11.0-16.0); White Blood Count 11.7 X10*3/uL (4.8-10.8)
[2020-11-03 07:25] LABS: Glucose, Whole Blood 191 mg/dL (60-115)
[2020-11-03 07:25] LABS: Anion Gap 14 (12-20); Blood Urea Nitrogen 10 mg/dL (9-16); Calcium 8.9 mg/dL (8.4-10.2); Carbon Dioxide 22 mmol/L (22-29); Chloride 107 mmol/L (96-108); Creatinine Clr Calc Pharmacy 93.8; Estimated Glomerular Filt Rate > 60; Glucose Random 180 mg/dL (60-115); Magnesium 1.8 mg/dL (1.6-2.6); Potassium 4.1 mmol/L (3.3-5.1); Sodium 139 mmol/L (135-145)
[2020-11-03 07:27] LABS: Platelet Count 123 X10*3/uL (160-400); SLIDE REVIEW VERIFIED
[2020-11-03 07:38] VITALS: BP 141/84; PULSE 80; RESP 20; TEMP 36.6; O2SAT 94
[2020-11-03 08:07] VITALS: BP 141/84; PULSE 80
[2020-11-03] MEDS: Famotidine 20 MG TABLET 40 MG PO (08:07)
[2020-11-03] MEDS: Losartan Potassium 50 MG TABLET 100 MG PO (08:07)
[2020-11-03] MEDS: Aspirin 81 MG TAB.CHEW PO (08:07)
[2020-11-03] MEDS: glipiZIDE 5 MG TABLET PO (08:07)
[2020-11-03] MEDS: Insulin Lispro 100 UNIT/ML 3 ML VIAL SUBCUT ×2 (08:07→12:08)
[2020-11-03] MEDS: Levothyroxine Sodium 175 MCG TABLET PO (08:07)
[2020-11-03] MEDS: 0.9 % Sodium Chloride Flush 3 ML SYRINGE IVFLUSH (08:08)
[2020-11-03 11:19] VITALS: BP 164/83; PULSE 86; RESP 18; TEMP 36.6; O2SAT 93
[2020-11-03 11:29] LABS: Glucose, Whole Blood 203 mg/dL (60-115)
[2020-11-03] MEDS: Sennosides 8.6 MG TABLET 17.2 MG PO (12:09)
--- NOTE | 2020-11-03 12:37 | P.DS_ITS ---
DS: Providers Provider Date of Service: 11/03/20 Date of admission: 11/01/20 05:50 Primary care physician: Unknown Physician Consults: 11/01/20 05:48 Consult to Urology Routine Consulting Provider: Sarbjit Huerta Reason for consultation: UTI; recent cystoscopy; renal stones; p/w Syncope DS: Diagnosis Discharge Diagnosis (1) Sepsis: Status: Acute (2) Syncope: Status: Acute (3) Hypomagnesemia: Status: Acute (4) UTI (urinary tract infection): Status: Acute (5) Nephrolithiasis: Status: Acute DS: Medications Discharge Medications Home Medications: Home Medications Medication Instructions Recorded Confirmed aspirin 81 mg tablet 81 mg PO DAILY 11/01/20 11/01/20 famotidine 40 mg tablet 40 mg PO DAILY 11/01/20 11/01/20 glipizide 5 mg tablet 5 mg PO DAILY 11/01/20 11/01/20 levothyroxine 175 mcg tablet 175 mcg PO DAILY 11/01/20 11/01/20 (Synthroid) losartan 100 mg tablet 100 mg PO DAILY 11/01/20 11/01/20 metformin 850 mg tablet 850 mg PO BID 11/01/20 11/01/20 Previous Rx's Medication Instructions Recorded tamsulosin 0.4 mg capsule 0.4 mg PO BEDTIME 14 Days #14 cap 10/31/20 tramadol 50 mg tablet 50 mg PO Q6H PRN #14 tab 10/31/20 DS: Summary Hospital Course Hospital Course: From H&P on day of admission 65-year-old female with a past medical history of hypertension, diabetes, of hernia status post multiple abdominal surgeries,, recent diagnosis of renal calculi-Cystoscopy, left retrograde, left ureteroscopy laser lithotripsy stent placement on 10/31/[address] huerta; subsequently went home at around 6:00 p.m.; presented to the hospital with a chief complaint of syncope. Patient is Czech-speaking; discussed with the patient patient's daughter at bedside with a spanish medical interpreter. Reportedly after the patient went home she felt tremulous and shaky and noted to have low blood pressure; subsequently patient turned pale became diaphoretic and lost consciousness for few minutes; denies any fall, head strike; patient denies any numbness tingling headaches or blurry visions. At the time of my interview patient reports that she has back at her baseline; reports mild dizziness.? Mental status is at her baseline as per the patient's daughter. Patient denies any chest pain palpitations. Denies any fever chills cough. Patient reports lower abdominal discomfort in the perivaginal area mostly- attributes to the cystoscopy procedure. Complains of burning urination. Denies any nausea vomiting diarrhea. Review of all other systems is negative except mentioned above ER course: Per ER team patient noted to have soft blood pressures; elevated lactate; urinalysis was abnormal possible UTI-given ceftriaxone.? CT chest showed no evidence of pulmonary embolism.? EKG was nonischemic.? Troponin was negative.? Admitted to the hospital for further management. Syncope ddx? sepsis due to UTI,? vasovagal/hypotension. No acute ischemic changes seen on EKG. Cardiac enzymes negative. No events noted on monitor. No further syncopal episodes. Patient stable for discharge home. Sepsis ?Patient on admission noted to be tachypneic tachycardic, leukocytosis ,low blood pressure, lactic acidosis ?CT head negative,CTA chest neg for PE showed pulm htn, renal ultrasound showed no acute abnormality ?WBC has been trending down ?underwent ureteroscopy with laser lithotripsy for imbedded stone in her left proximal ureter on 10/[address] Huerta on 11/01 he recommend to keep her hydrated. UA from 10/21 growing pansensitive e.coli. She had been discharged from emergency department levofloxacin. She has been treated with ceftriaxone since admission. Her repeat urine culture has returned negative. Blood cultures have so far returned negative. Given patient presented with sepsis will complete total 5 days of antibiotics. ? Lactic acidosis:? Resolved Transaminitis:? Likely in the setting of sepsis/hypotension.? Liver enzyme trending down ,hepatitis panel negative, right upper quadrant abdominal ultrasound showed no acute abnormality. UTI:? Continue iv ceftriaxone day 2.? Follow urine and blood culture Time Spent with Patient Time attestation: Total time spent providing and/or coordinating discharge services: Discharge coordination time: Greater than 30 minutes Quality: Stroke Does the patient have a stroke diagnosis?: No Physical Exam Vital Signs: Vital Signs: Last Vital Signs Temp 97.9 F 11/03/20 11:19 Pulse 86 11/03/20 11:19 Resp 18 11/03/20 11:19 BP 164/83 H 11/03/20 11:19 Pulse Ox 93 11/03/20 11:19 Body Mass Index 37.5 Const: Nutritional Appearance: well nourished Orientation/consciousness: patient oriented x3 HENMT: Head: Yes normocephalic and Yes atraumatic Eyes: Sclerae: sclerae normal Chest: Chest palpation & inspection: normal inspection of the chest Resp: Effort & Inspection: normal respiratory effort and no respiratory distress Cardio: Rate: regular rate Rhythm: regular rhythm GI: Palpation (GI): Soft to palpation and nontender Neuro: General: patient oriented x3 Cranial nerves: Yes CN's II-XII intact bilaterally and Yes Bilaterally intact EOM present DS: Data Data Completed and Pending Labs on day of discharge: Laboratory Results - last 24 hr 11/02/20 11/02/20 11/02/20 13:25 13:25 16:14 WBC 13.4 H RBC 3.83 L Hgb 11.8 L Hct 35.7 L MCV 93.2 MCH 30.8 MCHC 33.1 RDW 13.4 Plt Count 147 L D MPV 11.5 Immature Gran % (Auto) 1.3 H Neut % (Auto) 74.6 H Lymph % (Auto) 11.2 L [place] % (Auto) 5.6 Eos % (Auto) 6.9 H Baso % (Auto) 0.4 Lymph # (Auto) 1.5 [place] # (Auto) 0.8 Eos # (Auto) 0.9 H Baso # (Auto) 0.1 Abs Immat Gran (auto) 0.18 H Absolute Neuts (auto) 10.0 H Absolute Nucleated RBC 0.000 Nucleated RBC % (auto) 0.0 Smear Tech's Comments Sodium 143 Potassium 3.7 Chloride 112 H Carbon Dioxide 22 Anion Gap 13 BUN 12 Creatinine 0.77 Estim Creat Clear Calc 93.8 Estimated GFR > 60 POC Glucose 173 H Random Glucose 219 H Calcium 8.4 Magnesium 1.5 L Total Bilirubin 0.9 Direct Bilirubin 0.5 AST 38 H D ALT 90 H Alkaline Phosphatase 107 Total Protein 5.8 L Albumin 3.2 L 11/02/20 11/03/20 11/03/20 19:55 06:12 06:12 WBC 11.7 H RBC 4.06 L Hgb 12.3 Hct 37.3 MCV 91.9 MCH 30.3 MCHC 33.0 RDW 13.1 Plt Count 123 L MPV Not Reportable Immature Gran % (Auto) 0.9 H Neut % (Auto) 74.3 H Lymph % (Auto) 12.4 L [place] % (Auto) 5.6 Eos % (Auto) 6.4 H Baso % (Auto) 0.4 Lymph # (Auto) 1.5 [place] # (Auto) 0.7 Eos # (Auto) 0.8 H Baso # (Auto) 0.1 Abs Immat Gran (auto) 0.11 H Absolute Neuts (auto) 8.7 H Absolute Nucleated RBC 0.000 Nucleated RBC % (auto) 0.0 Smear Tech's Comments VERIFIED Sodium 139 Potassium 4.1 Chloride 107 Carbon Dioxide 22 Anion Gap 14 BUN 10 Creatinine 0.77 Estim Creat Clear Calc 93.8 Estimated GFR > 60 POC Glucose 210 H Random Glucose 180 H Calcium 8.9 Magnesium 1.8 Total Bilirubin Direct Bilirubin AST ALT Alkaline Phosphatase Total Protein Albumin 11/03/20 11/03/20 07:15 11:25 WBC RBC Hgb Hct MCV MCH MCHC RDW Plt Count MPV Immature Gran % (Auto) Neut % (Auto) Lymph % (Auto) [place] % (Auto) Eos % (Auto) Baso % (Auto) Lymph # (Auto) [place] # (Auto) Eos # (Auto) Baso # (Auto) Abs Immat Gran (auto) Absolute Neuts (auto) Absolute Nucleated RBC Nucleated RBC % (auto) Smear Tech's Comments Sodium Potassium Chloride Carbon Dioxide Anion Gap BUN Creatinine Estim Creat Clear Calc Estimated GFR POC Glucose 191 H 203 H Random Glucose Calcium Magnesium Total Bilirubin Direct Bilirubin AST ALT Alkaline Phosphatase Total Protein Albumin Preliminary micro results at discharge 11/01/20 02:32 Blood Culture - Preliminary Blood - Venous No growth after 48 hours. 11/01/20 02:11 Blood Culture - Preliminary Blood - Venous No growth after 48 hours. Discharge Plan Discharge Patient Disposition: Home, Self-Care Discharge Diagnosis: UTI Sepsis Syncope Elevated LFTs Referrals: Sarbjit Huerta MD [Physician] - 1 Week Physician,Unknown [Primary Care Provider] - 1 Week Discharge Medications: New cefuroxime axetil 250 mg tablet 250 mg PO BID Qty: 6 RF: 0 Continued tramadol 50 mg tablet 50 mg PO Q6H PRN (Reason: pain (scale score 4-6)) Qty: 14 RF: 0 tamsulosin 0.4 mg capsule 0.4 mg PO BEDTIME 14 Days Qty: 14 RF: 0 levothyroxine [Synthroid] 175 mcg Tablet 175 mcg PO DAILY RF: 0 famotidine 40 mg Tablet 40 mg PO DAILY RF: 0 aspirin 81 mg Tablet 81 mg PO DAILY RF: 0 losartan 100 mg Tablet 100 mg PO DAILY RF: 0 glipizide 5 mg Tablet 5 mg PO DAILY RF: 0 No Action metformin 850 mg Tablet 850 mg PO BID RF: 0 Stand Alone Forms: Patient Portal Discharge page Care Plan Goals: see below Health Concerns: Sepsis UTI syncope thrombocytopenia Plan of Treatment: syncope likely vasovagal vs r/t underlying infection UTI - complete course of antibiotics Follow up with Dr. Huerta Follow up with PCP to repeat CBC, follow thrombocytopenia Assessment: see discharge summary
[2020-11-03 12:44] LABS: Lactic Acid 1.5 mmol/L (0.5-2.0)
--- NOTE | 2020-11-03 13:17 | MHC.CM.PN ---
PT CLEARED TO DC HOME TODAY WITH NO SERVICES
== END 2020-11-03 13:54 | disposition home or self-care (01) | DRG 720 ==
LOC: HO.ED 05:08 → HO.EDOVER 06:10 → HO.IMC 08:37
PROVIDERS: Hospitalist; Physician Assistant Medical; Admitting Provider Hospitalist; Emergency Provider Student in an Organized Health Care Education/Training Program; Visit Provider Internal Medicine
DX: A41.9 Sepsis, unspecified organism (principal); E87.2 Acidosis; E83.42 Hypomagnesemia; E11.9 Type 2 diabetes mellitus without complications; R65.20 Severe sepsis without septic shock; I10 Essential (primary) hypertension; N39.0 Urinary tract infection, site not specified; Z20.822 Contact with and (suspected) exposure to COVID-19; E66.9 Obesity, unspecified; R55 Syncope and collapse; Z68.37 Body mass index [BMI] 37.0-37.9, adult; N20.0 Calculus of kidney; Z87.442 Personal history of urinary calculi; Z88.2 Allergy status to sulfonamides; Z79.82 Long term (current) use of aspirin; Z79.84 Long term (current) use of oral hypoglycemic drugs; Z79.890 Hormone replacement therapy; Z79.899 Other long term (current) drug therapy
CPT/HCPCS: 36415; 70450; 71275; 76705; 76857; 80048; 80053; 80076; 81001; 82009; 82947; 83605; 83690; 83735; 84484; 85025; 85379; 85610; 86704; 86706; 86709; 86803; 87040; 87086; 87340; 87635; 93005; 99285; J0696; J3475; Q9967

== ENCOUNTER → 2020-11-09 14:00 | Outpatient (BNVA) | payer MEDICAID, SELFPAY | PROVIDERS: PCP Internal Medicine; Visit Provider Urology | DX: N20.0 Calculus of kidney (principal); N39.0 Urinary tract infection, site not specified | CPT/HCPCS: 52310; 99212 ==

== ENCOUNTER 2020-11-15 10:00 | Outpatient (REF) | payer MEDICAID, SELFPAY ==
[2020-11-15 10:24] LABS: MANUAL DIFF FLAG NO
[2020-11-15 10:34] LABS: Basophils Percent Auto 0.8 % (0-2); Eosinophils Absolute Auto 0.2 X10*3/uL (0.0-0.4); Eosinophils Percent Auto 3.3 % (0-4); Hematocrit 38.8 % (37-47); Hemoglobin 12.4 g/dl (12.0-16.0); Imm Gran Abs Auto 0.01 X10*3/uL (0.00-0.03); Imm Gran Pct Auto 0.2 % (0.0-0.4); Lymphocytes Absolute Auto 1.6 X10*3/uL (1.2-4.9); Lymphocytes Percent Auto 30.8 % (20-40); Mean Corpuscular Hemoglobin 30.2 pg (27.0-33.0); Mean Corpuscular Volume 94.6 fL (80-98); Mean Platelet Volume 10.6 fL (9.4-12.3); Monocytes Absolute Auto 0.4 X10*3/uL (0.1-1.2); Monocytes Percent Auto 8.2 % (2-11); Neutrophils Percent Auto 56.7 % (45-73); Platelet Count 316 X10*3/uL (160-400); Red Cell Distribution Width 13.2 % (11.0-16.0); White Blood Count 5.2 X10*3/uL (4.8-10.8)
[2020-11-15 11:01] LABS: Alanine Aminotransferase 91 U/L (0-31); Albumin Level 4.2 g/dL (3.5-5.0); Alkaline Phosphatase 95 U/L (39-117); Anion Gap 13 (12-20); Aspartate Amino Transferase 43 U/L (5-31); Bilirubin Total 0.9 mg/dL (0.0-1.0); Blood Urea Nitrogen 23 mg/dL (9-16); Carbon Dioxide 28 mmol/L (22-29); Chloride 105 mmol/L (96-108); Cholesterol 147 mg/dL; Estimated Glomerular Filt Rate > 60; Glucose Fasting 161 mg/dL (60-99); HDL Cholesterol 34 mg/dL; LDL Cholesterol Calculated 69 mg/dl; Potassium 4.8 mmol/L (3.3-5.1); Sodium 141 mmol/L (135-145); Total Protein 7.5 g/dL (6.5-8.0); Triglycerides 220 mg/dL
[2020-11-15 11:24] LABS: Free T4 (Free Thyroxine) 1.78 ng/dL (0.71-1.85); Thyroid Stimulating Hormone 0.33 uIU/mL (0.32-4.0); Vitamin D 25-OH Total 36.9 ng/mL (>30)
== END 2020-11-15 10:01 | disposition home or self-care (01) ==
LOC: HO.LAB 10:00
PROVIDERS: PCP Internal Medicine; Visit Provider Internal Medicine
DX: I10 Essential (primary) hypertension (principal); E11.40 Type 2 diabetes mellitus with diabetic neuropathy, unspecified; E03.9 Hypothyroidism, unspecified; E78.00 Pure hypercholesterolemia, unspecified; E55.9 Vitamin D deficiency, unspecified
CPT/HCPCS: 36415; 80053; 80061; 82306; 84439; 84443; 85025

== ENCOUNTER 2020-12-01 13:14 | Outpatient (REF) | payer OTHER, SELFPAY ==
--- NOTE | ~2020-12-01 | US_ITS ---
EXAMINATION: US RETROPERITONEAL LIMITED (RENAL ONLY) CLINICAL INFORMATION: Calculus of kidney. COMPARISON: Ultrasound abdomen limited dated 11/01/2020. Bladder ultrasound dated 11/01/2020. CT abdomen and pelvis without contrast dated 10/21/2020. KUB dated 09/23/2018. TECHNIQUE: Calculus of kidney, acquired. FINDINGS: RIGHT KIDNEY: 12.1 x 5.5 x 5.9 cm (SAG x AP x TRV). The kidney is normal in size, contour, and echogenicity. Renal cortical thickness is normal. There are right renal stones. Largest stone measures 4 x 9 mm in the mid to lower pole. There are smaller stones in the upper pole. No focal parenchymal lesions or hydronephrosis. LEFT KIDNEY: 11.0 x 5.8 x 5.9 cm (SAG x AP x TRV). The kidney is normal in size, contour, and echogenicity. Renal cortical thickness is normal. There is moderate left hydronephrosis. This is similar to previous CT scan September 2020. There is a 1.2 x 1.3 x 1.4 cm cyst in the midpole. US/US renal BI IMPRESSION: Right renal stones. Left hydronephrosis similar to previous CT scan September 2020. Small left renal cyst.
== END 2020-12-01 13:15 | disposition home or self-care (01) ==
LOC: HO.US 13:14
PROVIDERS: PCP Internal Medicine; Visit Provider Urology
DX: N20.0 Calculus of kidney (principal)
CPT/HCPCS: 76775

== ENCOUNTER → 2020-12-06 11:17 | Outpatient (BNVA) | payer OTHER, SELFPAY | PROVIDERS: PCP Internal Medicine; Referring Provider Internal Medicine; Visit Provider Surgery | DX: K43.2 Incisional hernia without obstruction or gangrene (principal) | CPT/HCPCS: 99202 ==

== ENCOUNTER 2020-12-10 15:44 | Emergency (ER) | payer OTHER, SELFPAY ==
--- NOTE | 2020-12-10 | ECG_ITS ---
Test Reason : CHEST PAIN Blood Pressure : / mmHG Vent. Rate : 078 BPM Atrial Rate : 078 BPM P-R Int : 180 ms QRS Dur : 080 ms QT Int : 370 ms P-R-T Axes : 025 -12 105 degrees QTc Int : 421 ms Normal sinus rhythm Voltage criteria for left ventricular hypertrophy T wave abnormality, consider lateral ischemia Abnormal ECG When compared with ECG of 01-NOV-2020 02:08, Nonspecific T wave abnormality no longer evident in Anterior leads Referred By: Generic ED Physician Electronically Signed By:ROGER WESTBROOK
--- NOTE | ~2020-12-10 | XR_ITS ---
EXAMINATION: XR CHEST CLINICAL INFORMATION: Chest pressure. COMPARISON: Chest done on 09/15/2018. TECHNIQUE: 2 views of the chest were obtained. FINDINGS: No significant abnormality is noted involving the heart, lungs, mediastinum, bony thorax or soft tissues. XR/XR chest 2V IMPRESSION: Unremarkable examination. No significant change since the prior study dated 09/15/2018.
[2020-12-10 17:56] VITALS: BP 155/111; PULSE 65; RESP 22; TEMP 36.9; O2SAT 94; BMI 37.8
--- NOTE | 2020-12-10 18:01 | ED.CHESTPAIN ---
HPI - Chest Pain General Chief Complaint: Chest Pain Stated Complaint: Chest pain Time Seen by Provider: 12/10/20 16:55 Source: patient and family Mode of arrival: ambulatory Limitations: no limitations History of Present Illness HPI narrative: 65-year-old female with past medical history of neuropathy, GERD without esophagitis, type 2 diabetes, hypothyroidism, hypertension, UTI, hernia repair is here today for complaints of malaise and epigastric pain and chest tightness. Patient reports that she woke up find this morning however 15 minutes later she became feel very tired and weak. She reports that she was feeling nauseous checked her blood pressure and it was high as well as her blood sugar was high. Does not remember the numbers. Patient is here with her grandson. Patient reports that she has not been sleeping very well, reports that her blood pressure lately has been pretty high. Patient reports that she is taking losartan for her blood pressure. Patient also reports that she has been taking famotidine for her epigastric discomfort. MD complaint: other (Chest tightness) Onset (ago): hour(s) Timing of current episode: episodic Prior episodes: Yes Onset: during rest Pain location: other (Epigastric) Pain radiation: none Severity: moderate Quality: tightness Exacerbating factors: palpation Related Data Home Medications Medication Instructions Recorded Confirmed aspirin 81 mg tablet 81 mg PO DAILY 11/01/20 11/15/20 gabapentin 600 mg tablet 600 mg PO BID 12/06/20 Previous Rx's Medication Instructions Recorded tamsulosin 0.4 mg capsule 0.4 mg PO BEDTIME 14 Days #14 cap 10/31/20 LIGHTWEIGHT WHEELCHAIR #1 ea 11/15/20 famotidine 40 mg tablet 40 mg PO DAILY 90 Days #90 tab 11/15/20 glipizide 5 mg tablet 5 mg PO DAILY 90 Days #90 tab 11/15/20 levothyroxine 175 mcg tablet 175 mcg PO DAILY 90 Days #90 tab 11/15/20 (Synthroid) losartan 100 mg tablet 100 mg PO DAILY 90 Days #90 tab 11/15/20 metformin 850 mg tablet 850 mg PO BID 90 Days #180 tab 11/15/20 gabapentin 600 mg tablet 600 mg PO BID #10 tab 12/10/20 meclizine 25 mg tablet 25 mg PO BID PRN #20 tab 12/10/20 pantoprazole 40 mg tablet,delayed 40 mg PO DAILY #20 tab 12/10/20 release Allergies Allergy/AdvReac Type Severity Reaction Status Date / Time lactose [LACTOSE] Allergy Unknown Gastrointestinal Verified 11/15/20 09:07 Upset Sulfa (Sulfonamide Allergy Unknown ITCHY Verified 11/15/20 09:07 Antibiotics) [SULFA (SULFONAMIDE ANTIBIOTICS)] Review of Systems Review of Systems: Constitutional : No Weight loss, No Fever, No Chills, No Night Sweats, Fatigue, No Malaise, difficulty falling asleep ENT/Mouth : No Hearing loss, No Ear Pain, No Nasal Congestion, No Sinus Pain, No Hoarseness, No sore throat, No Rhinorrhea, No Swallowing Difficulty Eyes: No Eye Pain, No Swelling, No Redness, No Foreign Body, No Discharge, No Vision Changes Cardiovascular : Chest Pain/tightness, No SOB, No Dyspnea on Exertion, No Orthopnea, No Edema, No Palpitations Respiratory : No Cough, No Sputum, No Wheezing, No Smoke Exposure, No Dyspnea Gastrointestinal : Nausea, No Vomiting, No Diarrhea, No Constipation, No abdominal Pain, No Hematochezia, No Melena Genitourinary : no irregular bleeding, No Dysuria, No Urinary Frequency, No Hematuria, No Urinary Incontinence, No Urgency, No Flank Pain, No Urinary Flow Changes, No Hesitancy Musculoskeletal : No joint pain, No Myalgias, No Joint Swelling Skin : No Skin Lesions, No rash Neuro : No Weakness, No Numbness, No Paresthesias, No Loss of Consciousness, No Dizziness, No Headache Psych : No Anxiety/Panic, No Depression, No SI/HI/AH/VH, No Social Issues, Heme/Lymph: No Bruising, No Bleeding,No Lymphadenopathy Endocrine : No Polyuria, No Polydipsia, No Temperature Intolerance Yes all other systems are reviewed and are negative [facility] Past Medical History Medical History Benign essential hypertension Diabetes GERD without esophagitis Hypertension Hypothyroidism Increased BMI Lumbar degenerative disc disease Morbid obesity with BMI of 40.0-44.9, adult Neuropathy Numbness of foot Swelling of lower extremity Type 2 diabetes mellitus with diabetic neuropathy Surgical History H/O colonoscopy H/O hernia repair (~2016) H/O ovarian cystectomy History of appendectomy History of cholecystectomy History of oophorectomy History of surgery History of tubal ligation Social History Social History Household Members: Family Housing: Apartment Do you presently have visiting nurse or other home services: No Alcohol intake: never Patient Tobacco Use Status: Never used Tobacco Second Hand Smoke Exposure: No Use of substances other than those prescribed or required for medical reasons: No Advance Directives: No Advance Directives Information Provided: No service: No Current occupational status: disabled Physical Exam Vital Signs: Vital Signs: Last Vital Signs Temp 98.5 F 12/10/20 17:56 Pulse 67 12/10/20 20:27 Resp 22 H 12/10/20 20:27 BP 155/84 H 12/10/20 20:27 Pulse Ox 96 12/10/20 20:27 Body Mass Index 37.8 Const: General: healthy appearing, no acute distress and well developed Nutritional Appearance: well nourished Orientation/consciousness: patient oriented x3 HENMT: Head: Yes normal to inspection, Yes normocephalic and Yes atraumatic Ears: hearing grossly normal bilaterally, external ears normal and TM's normal bilaterally General nose exam: Normal external nose present Face and sinus: Yes normal facial exam Mouth: Normal oral and palatal mucosa present Neck: Neck: Yes normal visual inspection, Yes full ROM and Yes trachea midline Thyroid: Thyroid normal Resp: Auscultation: clear to auscultation bilaterally Cardio: Rate: regular rate Rhythm: regular rhythm GI: Inspection: Yes normal to inspection, No distended and Yes obesity Palpation (GI): Soft to palpation, not firm, nontender, no guarding, No hepatosplenomegaly present and Other GI palpation findings present (Epigastric area tenderness) Auscultation: normal bowel sounds Skin: General skin exam: elasticity normal, turgor normal and dry skin Neuro: General: patient oriented x3 Course Course Course Narrative: 65-year-old female with past medical history of morbid obesity, neuropathy, diabetes, GERD, UTI, hernia repair, recurrent UTIs. Is here today for complaining of dizziness and chest pressure. Upon exam patient reports of tenderness in the epigastric area. Denies any syncope, presyncope, palpitations. Denies any SOB with or without exertion. Denies any edema in her extremities. Patient reports that she felt nauseous in the past, however now she states that she no longer has nausea and is feeling better. Still complains of epigastric tenderness. Will do CBC, BMP, troponin, EKG and chest x-ray. Reevaluation(s) Reevaluation #1: Labs reviewed and no leukocytosis no anemia. Patient's troponin is negative. Electrolytes normal, patient reports that she has been feeling little better. Will hydrate, give her Protonix and meclizine. Reevaluation #2: Patient reports that she is feeling better will send her home on Protonix. Patient is taking Prilosec and Pepcid at home will change that for now and she can follow-up with her PCP. I will send her home with meclizine is well. Discussed this with patient and her grandson and both are agreeable to plan of care. Patient reports that she is feeling much better and she wants go home MDM - Chest Pain Lab Data Result diagrams: 12/10/20 18:20 12/10/20 18:20 Labs: Lab Results 12/10/20 12/10/20 12/10/20 Range/Units 18:20 18:20 18:20 WBC 6.5 (4.8-10.8) X10*3/uL RBC 4.80 (4.20-5.50) X10*6/uL Hgb 14.8 (12.0-16.0) g/dl Hct 44.1 (37-47) % MCV 91.9 (80-98) fL MCH 30.8 (27.0-33.0) pg MCHC 33.6 (31.0-35.0) g/dl RDW 12.3 (11.0-16.0) % Plt Count 260 (160-400) X10*3/uL MPV 10.5 (9.4-12.3) fL Immature Gran % (Auto) 0.3 (0.0-0.4) % Neut % (Auto) 55.8 (45-73) % Lymph % (Auto) 34.7 (20-40) % [place] % (Auto) 7.4 (2-11) % Eos % (Auto) 1.2 (0-4) % Baso % (Auto) 0.6 (0-2) % Lymph # (Auto) 2.2 (1.2-4.9) X10*3/uL [place] # (Auto) 0.5 (0.1-1.2) X10*3/uL Eos # (Auto) 0.1 (0.0-0.4) X10*3/uL Baso # (Auto) 0.0 (0.0-0.2) X10*3/uL Abs Immat Gran (auto) 0.02 (0.00-0.03) X10*3/uL Absolute Neuts (auto) 3.6 (2.0-8.3) X10*3/uL Absolute Nucleated RBC 0.000 (0.0-0.012) X10*3/uL Nucleated RBC % (auto) 0.0 (0.0-0.2) /100WBC Sodium 142 (135-145) mmol/L Potassium 4.7 (3.3-5.1) mmol/L Chloride 107 (96-108) mmol/L Carbon Dioxide 27 (22-29) mmol/L Anion Gap 13 (12-20) BUN 15 (9-16) mg/dL Creatinine 0.90 (0.5-1.4) mg/dL Estim Creat Clear Calc 72.5 Estimated GFR > 60 Random Glucose 168 H (60-115) mg/dL Calcium 10.4 H (8.4-10.2) mg/dL Troponin I High Sens < 3.5 (<3.5-17.0) ng/L Imaging Data Chest x-ray: Radiologist's impression: FINDINGS: No significant abnormality is noted involving the heart, lungs, mediastinum, bony thorax or soft tissues. Discharge Plan Discharge Clinical Impression: Benign essential hypertension, GERD without esophagitis, Atypical chest pain, Dizziness Patient Disposition: Home, Self-Care Instructions: Chest Pain (ED), Gastroesophageal Reflux Disease (ED), Dizziness (ED) Additional Instructions: Lo vieron aqu? hoy por dolor epig?strico y opresi?n en el pecho. Tu trabajo de laboratorio fue todo normal. Le dieron un medicamento para ayudar con ford reflujo ?cido que mejor? silvio s?ntomas. Tambi?n le dieron medicamentos para los mareos. Cecile un seguimiento con ford proveedor de atenci?n primaria en 2-3 d?as. Se le remitir? a gastroenterolog?a para el tratamiento de ford ERGE. Puede regresar al departamento de emergencias si silvio s?ntomas empeoran o si experimenta alg?n s?ntoma adicional preocupante. Prescriptions: New gabapentin 600 mg tablet 600 mg PO BID Qty: 10 RF: 0 pantoprazole 40 mg tablet,delayed release (DR/EC) 40 mg PO DAILY Qty: 20 RF: 0 meclizine 25 mg tablet 25 mg PO BID PRN (Reason: dizziness) Qty: 20 RF: 0 No Action tamsulosin 0.4 mg capsule 0.4 mg PO BEDTIME 14 Days Qty: 14 RF: 0 aspirin 81 mg Tablet 81 mg PO DAILY RF: 0 famotidine 40 mg tablet 40 mg PO DAILY 90 Days Qty: 90 RF: 1 glipizide 5 mg tablet 5 mg PO DAILY 90 Days Qty: 90 RF: 1 levothyroxine [Synthroid] 175 mcg tablet 175 mcg PO DAILY 90 Days Qty: 90 RF: 1 losartan 100 mg tablet 100 mg PO DAILY 90 Days Qty: 90 RF: 1 metformin 850 mg tablet 850 mg PO BID 90 Days Qty: 180 RF: 1 (DME) LIGHTWEIGHT WHEELCHAIR See Rx Instructions .Route .MEDSUPPLY Qty: 1 RF: 0 gabapentin 600 mg tablet 600 mg PO BID RF: 0 Referrals: Luis Alfredo Trivedi MD [Physician] - 2 days Alicia Mahan MD [Physician] - 2 days Interventions: ED Discharge Assessment Last Done: 12/10/20 21:55 Discharge Date/Time: 12/10/20 21:00
[2020-12-10 18:24] LABS: MANUAL DIFF FLAG NO
[2020-12-10 18:28] VITALS: BP 144/74; PULSE 71; RESP 20
[2020-12-10 18:37] LABS: Basophils Percent Auto 0.6 % (0-2); Eosinophils Absolute Auto 0.1 X10*3/uL (0.0-0.4); Eosinophils Percent Auto 1.2 % (0-4); Hematocrit 44.1 % (37-47); Hemoglobin 14.8 g/dl (12.0-16.0); Imm Gran Abs Auto 0.02 X10*3/uL (0.00-0.03); Imm Gran Pct Auto 0.3 % (0.0-0.4); Lymphocytes Absolute Auto 2.2 X10*3/uL (1.2-4.9); Lymphocytes Percent Auto 34.7 % (20-40); Mean Corpuscular HGB Conc 33.6 g/dl (31.0-35.0); Mean Corpuscular Hemoglobin 30.8 pg (27.0-33.0); Mean Corpuscular Volume 91.9 fL (80-98); Mean Platelet Volume 10.5 fL (9.4-12.3); Monocytes Absolute Auto 0.5 X10*3/uL (0.1-1.2); Monocytes Percent Auto 7.4 % (2-11); Neutrophils Absolute Auto 3.6 X10*3/uL (2.0-8.3); Neutrophils Percent Auto 55.8 % (45-73); Platelet Count 260 X10*3/uL (160-400); Red Cell Distribution Width 12.3 % (11.0-16.0); White Blood Count 6.5 X10*3/uL (4.8-10.8)
[2020-12-10 18:43] LABS: Anion Gap 13 (12-20); Blood Urea Nitrogen 15 mg/dL (9-16); Calcium 10.4 mg/dL (8.4-10.2); Carbon Dioxide 27 mmol/L (22-29); Chloride 107 mmol/L (96-108); Creatinine Clr Calc Pharmacy 72.5; Estimated Glomerular Filt Rate > 60; Glucose Random 168 mg/dL (60-115); Potassium 4.7 mmol/L (3.3-5.1); Sodium 142 mmol/L (135-145)
[2020-12-10 18:49] LABS: Troponin-I High Sensitivity < 3.5 ng/L (<3.5-17.0)
[2020-12-10] MEDS: 0.9 % Sodium Chloride 500 ML IV (20:24)
[2020-12-10] MEDS: Meclizine HCl 25 MG TABLET PO (20:25)
[2020-12-10] MEDS: Pantoprazole Sodium 40 MG/10 ML VIAL IVPUSH (20:25)
[2020-12-10 20:27] VITALS: BP 155/84; PULSE 67; RESP 22; O2SAT 96
--- NOTE | 2020-12-10 20:57 | PC.NURSE ---
pt ambulatory to bathroom with steady gait, and in no distress. pt reports she is no longer dizzy or experiencing chest discomfort. pt awake and alert, able to hold a good conversation.
== END 2020-12-10 21:00 | disposition home or self-care (01) ==
PROVIDERS: Nurse Practitioner Family; Emergency Provider Emergency Medicine Emergency Medical Services; PCP Internal Medicine
DX: R07.89 Other chest pain (principal); I10 Essential (primary) hypertension; K21.9 Gastro-esophageal reflux disease without esophagitis; R42 Dizziness and giddiness; E11.9 Type 2 diabetes mellitus without complications; Z79.82 Long term (current) use of aspirin; Z79.899 Other long term (current) drug therapy
CPT/HCPCS: 36415; 71046; 80048; 84484; 85025; 93005; 96361; 96374; 99284

== ENCOUNTER → 2020-12-23 12:08 | Outpatient (BNVA) | payer OTHER, SELFPAY | PROVIDERS: PCP Internal Medicine; Visit Provider Urology ==